=== PATIENT | male | born 1955 | race Caucasian/White ===

== ENCOUNTER 2019-01-05 19:50 | Observation (INO) | payer OTHER ==
[2019-01-05] MEDS ORDERED: Sodium Chloride 0.9% 1,000 ML IV ONE (20:11)
[2019-01-05] MEDS ORDERED: Ondansetron 4 MG/2 ML SDV IVPUSH ONE (20:11)
[2019-01-05] MEDS ORDERED: Morphine 2 MG/ML Syringe IVPUSH ONE (20:12)
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
[2019-01-05] MEDS ORDERED: HYDROmorphone 2 MG/ML Syringe IVPUSH ONE (22:05)
--- NOTE | 2019-01-05 22:55 | CT ---
INDICATION: Abdominal pain. Previous history of head neck cancer. COMPARISON: COMPARISON DATE TECHNIQUE: CT examination of the abdomen and pelvis was performed without contrast enhancement using 3 mm thick axial sections from the lung bases through the pubic symphysis. Oral contrast was not administered. Please note that all CT scans at this facility use dose modulation, iterative reconstruction, and/or weight-based dosing when appropriate to reduce radiation dose to as low as reasonably achievable. FINDINGS: In the abdomen, the unenhanced liver is mildly enlarged, measuring 19.2 centimeters in length The spleen is moderately enlarged measuring 15.1 centimeters in length. The pancreas and adrenals are normal in appearance. The unenhanced kidneys are normal in appearance. The gallbladder is normal in appearance. The abdominal aorta is normal in caliber with no sign of dilatation. There is no sign of retroperitoneal mass or adenopathy. The stomach, loops of small bowel, and colon in the abdomen are normal in appearance. In the pelvis, the appendix is nonvisualized, but there is no sign of an inflammatory process in the area of the appendix. There is mild proximal sigmoid diverticulosis without evidence of diverticulitis. The loops of small bowel and colon in the pelvis are otherwise normal in appearance. The prostate is mildly enlarged, measuring 5.1 centimeters in diameter. It is otherwise normal in appearance. The urinary bladder is normal in appearance. There is no sign of pelvic or inguinal mass or adenopathy. There is a moderate area of spiculated density measuring 1.3 x 0.9 centimeters in the posterior-medial right lung base. While this is most likely an area of scarring or atelectasis, malignancy cannot entirely be excluded. There is mild patchy infiltrate in the posterior-medial right lung base, probably atelectasis. The rest of the lung base is clear. The heart is normal in size with a trace pericardial effusion. There is mild scoliosis of the inferior lumbar spine convex towards the left. There is prominent disc degenerative disease at L5-S1 with absence of the disc space consistent with effusion. There is prominent L3-4 and L4-5 disc degenerative disease with moderate disc degenerative disease throughout the rest of the lumbar spine. IMPRESSION: CT of the abdomen shows moderate splenomegaly and mild hepatomegaly of uncertain etiology. CT of the pelvis shows mild enlargement of the prostate. 1 x 3 x 0.9 centimeter spiculated density in the posterior-medial right lung base, probably scarring or atelectasis. Cannot exclude malignancy. Follow-up CT of the chest without contrast can be performed if clinically appropriate. Please note that all CT scans at this facility use dose modulation, iterative reconstruction, and/or weight-based dosing when appropriate to reduce radiation dose to as low as reasonably achievable. Dictated by Tim Wolf MD @ Jan 05 2019 10:44PM Signed by Dr. Tim Wolf @ Jan 05 2019 10:53PM
[2019-01-06] MEDS: Sodium Chloride 0.9% 1,000 ML IV SCH ×3 (01:08→17:00)
[2019-01-06] MEDS: HYDROmorphone 2 MG Tab PO PRN ×7 (01:12→21:44)
[2019-01-06] MEDS: Temazepam 15 MG Cap PO PRN (01:12)
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
[2019-01-06] MEDS ORDERED: Albuterol 8 GM Inhaler INH PRN (08:25)
[2019-01-06] MEDS ORDERED: fentaNYL 75 MCG/HR Transdermal Patch TRDERM SCH (08:30)
[2019-01-06] MEDS: Nicotine 14 MG/24 Hr Patch TRDERM SCH (09:04)
[2019-01-06] MEDS: Heparin Sodium 5,000 Units/ML Vial SUBCUT SCH ×2 (09:06→17:15)
--- NOTE | 2019-01-06 11:47 | US ---
EXAMINATION: Right upper quadrant ultrasound HISTORY: Pancreatitis COMPARISON: Noncontrast CT dated 01/05/2019 TECHNIQUE: Grayscale and color Doppler imaging obtained of the right upper quadrant. FINDINGS: Within the region of the head of the pancreas is a hypoechoic fairly well-circumscribed nodular region measuring 2 x 0.8 cm. The liver is mildly increased in generalized echotexture without a focal hepatic mass. Gallbladder wall thickness is normal. No pericholecystic fluid or shadowing gallstones. Common bile duct measures 6 mm. The right kidney measures 9.9 cm [id number] without evidence of hydronephrosis. IMPRESSION: 1. Hypoechoic nodular area within the pancreas, given the history of pancreatitis kidneys could represent a small region of necrosis. A pancreatic neoplasm is not excluded at this time and follow-up imaging with an MRI may be beneficial. 2. Mild fatty infiltration of the liver.
[2019-01-06] MEDS: Morphine 2 MG/ML Syringe IVPUSH PRN ×2 (19:48→22:08)
[2019-01-07] MEDS: Morphine 2 MG/ML Syringe IVPUSH PRN ×6 (00:14→15:12)
[2019-01-07] MEDS: Heparin Sodium 5,000 Units/ML Vial SUBCUT SCH ×3 (00:14→18:27)
[2019-01-07] MEDS: Temazepam 15 MG Cap PO PRN (00:36)
[2019-01-07] MEDS: Sodium Chloride 0.9% 1,000 ML IV SCH ×2 (00:36→08:47)
[2019-01-07] MEDS: HYDROmorphone 2 MG Tab PO PRN ×5 (01:34→15:29)
[2019-01-07] MEDS: Nicotine 14 MG/24 Hr Patch TRDERM SCH (08:09)
[2019-01-07] MEDS ORDERED: Gadobenate Dimeglumine 529 MG/ML 20 ML SDV IVPUSH STA (10:28)
--- NOTE | 2019-01-07 12:44 | MR ---
EXAMINATION: MRI of the abdomen with and without contrast. HISTORY: Possible pancreatic mass COMPARISON: CT dated 01/05/2019 TECHNIQUE: Multiplanar and multisequence imaging obtained of the abdomen before and following the administration of 10 mL of MultiHance. An MRCP protocol was also used. FINDINGS: There is moderate motion artifact noted most prominent on the postcontrast sequences. The liver is normal in signal without a focal mass or signal dropout on out of phase imaging. Adrenal glands and spleen are grossly normal. Small amount of fluid within the right upper quadrant and within the pericholecystic region with an otherwise unremarkable gallbladder. The common bile duct appears normal without a filling defect. Just anterior to the head of the pancreas is a 2 x 1 cm lymph node, possibly the abnormality noted on the prior ultrasound. Otherwise the pancreas is not optimally characterized due to motion. No organized peripancreatic fluid collection. The kidneys enhance and function symmetrically without evidence of obstructive uropathy. Degenerative and endplate marrow signal changes noted within the lumbar spine. There is a small amount of free pelvic fluid also noted. IMPRESSION: 1. Small amount of ascites most prominent in the peripancreatic region. 2. The previously demonstrated mass likely represents a borderline 2 x 1 cm peripancreatic lymph node. 3. No definitive pancreatic mass or cystic collection.
--- NOTE | 2019-01-07 13:06 | PCM.PN ---
<Placido Arevalo - Last Filed: 01/07/19 13:02> - General Info Date of Service: 01/07/19 Subjective Update: No acute events overnight. abdominal pain improved. No nausea, vomiting. He is hungry. - Patient Data Vitals - Most Recent: Last Vital Signs Temp 37.8 C 01/07/19 11:42 Pulse 84 01/07/19 11:42 Resp 16 01/07/19 11:42 BP 123/72 01/07/19 11:42 Pulse Ox 95 01/07/19 11:42 Weight - Most Recent: 59.874 kg I&O - Last 24 Hours: Intake & Output 01/06/19 01/07/19 01/07/19 22:59 06:59 14:59 Intake Total 2389 0 Balance 2389 0 Lab Results Last 24 Hours: Laboratory Results - last 24 hr 01/07/19 01/07/19 Range/Units 07:20 07:20 WBC 3.98 L (4.0-11.0) K/uL RBC 3.36 L (4.50-5.90) M/uL Hgb 10.2 L (13.0-17.0) g/dL Hct 29.9 L (38.0-50.0) % MCV 89.0 (80.0-98.0) fL MCH 30.4 (27.0-32.0) pg MCHC 34.1 (31.0-37.0) g/dL RDW Std Deviation 50.5 (28.0-62.0) fl RDW Coeff of Dee 16 H (11.0-15.0) % Plt Count 173 (150-400) K/uL MPV 9.10 (7.40-12.00) fL Neut % (Auto) 81.6 H (48.0-80.0) % Lymph % (Auto) 8.5 L (16.0-40.0) % Leon % (Auto) 8.8 (0.0-15.0) % Eos % (Auto) 0.8 (0.0-7.0) % Baso % (Auto) 0.3 (0.0-1.5) % Neut # (Auto) 3.3 (1.4-5.7) K/uL Lymph # (Auto) 0.3 L (0.6-2.4) K/uL Leon # (Auto) 0.4 (0.0-0.8) K/uL Eos # (Auto) 0.0 (0.0-0.7) K/uL Baso # (Auto) 0.0 (0.0-0.1) K/uL Nucleated RBC % 0.0 /100WBC Nucleated RBCs # 0 K/uL Sodium 133 L (136-148) mmol/L Potassium 3.7 (3.5-5.1) mmol/L Chloride 101 (98-107) mmol/L Carbon Dioxide 21.2 (21.0-32.0) mmol/L BUN 17 (7.0-18.0) mg/dL Creatinine 1.5 H (0.8-1.3) mg/dL Est Cr Clr Drug Dosing 43.24 mL/min Estimated GFR (MDRD) 47.4 ml/min Glucose 71 L (74-106) mg/dL Calcium 8.9 (8.5-10.1) mg/dL Lipase 644 H (73-393) U/L Med Orders - Current: Current Medications Albuterol (Ventolin Hfa) 0 gm INH Q6H PRN PRN Reason: Shortness of Breath Fentanyl (Duragesic) 75 mcg TRDERM Q72H [facility] Last Admin: 01/06/19 09:05 Dose: 75 mcg Heparin Sodium (Porcine) (Heparin Sodium) 5,000 units SUBCUT Q8H [facility] Last Admin: 01/07/19 08:43 Dose: 5,000 units Hydromorphone HCl (Dilaudid) 4 mg PO Q3H PRN PRN Reason: Pain Last Admin: 01/07/19 11:59 Dose: 4 mg Sodium Chloride (Normal Saline) 1,000 mls @ 125 mls/hr IV ASDIRECTED [facility] Last Admin: 01/07/19 08:47 Dose: 125 mls/hr Morphine Sulfate (Morphine) 2 mg IVPUSH Q2H PRN PRN Reason: Pain Last Admin: 01/07/19 11:25 Dose: 2 mg Nicotine (Habitrol) 14 mg TRDERM DAILY [facility] Last Admin: 01/07/19 08:09 Dose: 14 mg Temazepam (Restoril) 15 mg PO BEDTIME PRN PRN Reason: Insomnia Last Admin: 01/07/19 00:36 Dose: 15 mg Discontinued Medications Gadobenate Dimeglumine (Multihance) 10 ml IVPUSH ONETIME STA Stop: 01/07/19 10:29 Last Admin: 01/07/19 10:31 Dose: 10 ml Hydromorphone HCl (Dilaudid) 1 mg IVPUSH ONETIME ONE Stop: 01/05/19 22:06 Last Admin: 01/05/19 22:22 Dose: 1 mg Sodium Chloride (Normal Saline) 1,000 mls @ 999 mls/hr IV BOLUS ONE Stop: 01/05/19 21:11 Last Admin: 01/05/19 22:21 Dose: 999 mls/hr Morphine Sulfate (Morphine) 2 mg IVPUSH ONETIME ONE Stop: 01/05/19 20:13 Last Admin: 01/05/19 20:43 Dose: 2 mg Ondansetron HCl (Zofran) 4 mg IVPUSH ONETIME ONE Stop: 01/05/19 20:12 Last Admin: 01/05/19 22:21 Dose: 4 mg - Exam General: Alert, Oriented, Cooperative, No Acute Distress Lungs: Clear to Auscultation, Normal Respiratory Effort Cardiovascular: Regular Rate, Regular Rhythm GI/Abdominal Exam: Other (hypoactive bowel sounds, mildly tender in epigastric region. No rebound.) Extremities: Normal Inspection, No Pedal Edema Skin: Warm, Dry - Problem List Review Problem List Initiated/Reviewed/Updated: Yes - My Orders Last 24 Hours: My Active Orders 01/07/19 Lunch Full Liquid Diet [DIET] - Plan Plan:: A: 1. Acute pancreatitis 2. Metastatic lung cancer 3. Suspicious pancreatic mass P: 1. Acute pancreatitis- will advance diet to full liquid. Advance as tolerated. 2. Suspicious pancreatic mass- Ordered MRI Dispo: likely tomorrow <Avni Nielson - Last Filed: 01/07/19 18:05> - General Info Admission Dx/Problem (Free Text): I have seen and examined to patient independently of medical recruiter, Placido Stephens MD. I have discussed the case for care of this patient with him. I have reviewed and approve of the plan of care as outlined by medical recruiter. Please see orders. - Patient Data Vitals - Most Recent: Last Vital Signs Temp 38.6 C H 01/07/19 15:07 Pulse 89 01/07/19 15:07 Resp 16 01/07/19 15:07 BP 142/91 H 01/07/19 15:07 Pulse Ox 93 L 01/07/19 15:07 I&O - Last 24 Hours: Intake & Output 01/07/19 01/07/19 01/07/19 06:59 14:59 22:59 Intake Total 0 1504 Output Total 300 Balance 0 1204 Lab Results Last 24 Hours: Laboratory Results - last 24 hr 01/07/19 01/07/19 Range/Units 07:20 07:20 WBC 3.98 L (4.0-11.0) K/uL RBC 3.36 L (4.50-5.90) M/uL Hgb 10.2 L (13.0-17.0) g/dL Hct 29.9 L (38.0-50.0) % MCV 89.0 (80.0-98.0) fL MCH 30.4 (27.0-32.0) pg MCHC 34.1 (31.0-37.0) g/dL RDW Std Deviation 50.5 (28.0-62.0) fl RDW Coeff of Dee 16 H (11.0-15.0) % Plt Count 173 (150-400) K/uL MPV 9.10 (7.40-12.00) fL Neut % (Auto) 81.6 H (48.0-80.0) % Lymph % (Auto) 8.5 L (16.0-40.0) % Leon % (Auto) 8.8 (0.0-15.0) % Eos % (Auto) 0.8 (0.0-7.0) % Baso % (Auto) 0.3 (0.0-1.5) % Neut # (Auto) 3.3 (1.4-5.7) K/uL Lymph # (Auto) 0.3 L (0.6-2.4) K/uL Leon # (Auto) 0.4 (0.0-0.8) K/uL Eos # (Auto) 0.0 (0.0-0.7) K/uL Baso # (Auto) 0.0 (0.0-0.1) K/uL Nucleated RBC % 0.0 /100WBC Nucleated RBCs # 0 K/uL Sodium 133 L (136-148) mmol/L Potassium 3.7 (3.5-5.1) mmol/L Chloride 101 (98-107) mmol/L Carbon Dioxide 21.2 (21.0-32.0) mmol/L BUN 17 (7.0-18.0) mg/dL Creatinine 1.5 H (0.8-1.3) mg/dL Est Cr Clr Drug Dosing 43.24 mL/min Estimated GFR (MDRD) 47.4 ml/min Glucose 71 L (74-106) mg/dL Calcium 8.9 (8.5-10.1) mg/dL Lipase 644 H (73-393) U/L Med Orders - Current: Current Medications Acetaminophen (Tylenol) 650 mg PO Q6H PRN PRN Reason: Pain/Fever Last Admin: 01/07/19 15:30 Dose: 650 mg Albuterol (Ventolin Hfa) 0 gm INH Q6H PRN PRN Reason: Shortness of Breath Fentanyl (Duragesic) 75 mcg TRDERM Q72H [facility] Last Admin: 01/06/19 09:05 Dose: 75 mcg Heparin Sodium (Porcine) (Heparin Sodium) 5,000 units SUBCUT Q8H [facility] Last Admin: 01/07/19 08:43 Dose: 5,000 units Hydromorphone HCl (Dilaudid) 4 mg PO Q3H PRN PRN Reason: Pain Last Admin: 01/07/19 15:29 Dose: 4 mg Sodium Chloride (Normal Saline) 1,000 mls @ 125 mls/hr IV ASDIRECTED [facility] Last Admin: 01/07/19 08:47 Dose: 125 mls/hr Morphine Sulfate (Morphine) 2 mg IVPUSH Q2H PRN PRN Reason: Pain Last Admin: 01/07/19 15:12 Dose: 2 mg Nicotine (Habitrol) 14 mg TRDERM DAILY [facility] Last Admin: 01/07/19 08:09 Dose: 14 mg Temazepam (Restoril) 15 mg PO BEDTIME PRN PRN Reason: Insomnia Last Admin: 01/07/19 00:36 Dose: 15 mg Discontinued Medications Gadobenate Dimeglumine (Multihance) 10 ml IVPUSH ONETIME STA Stop: 01/07/19 10:29 Last Admin: 01/07/19 10:31 Dose: 10 ml Heparin Sodium (Porcine) (Heparin Lock Flush 100 Units/Ml) 300 unit FLUSH ONETIME ONE Stop: 01/07/19 17:13 Last Admin: 01/07/19 17:32 Dose: Not Given Hydromorphone HCl (Dilaudid) 1 mg IVPUSH ONETIME ONE Stop: 01/05/19 22:06 Last Admin: 01/05/19 22:22 Dose: 1 mg Sodium Chloride (Normal Saline) 1,000 mls @ 999 mls/hr IV BOLUS ONE Stop: 01/05/19 21:11 Last Admin: 01/05/19 22:21 Dose: 999 mls/hr Morphine Sulfate (Morphine) 2 mg IVPUSH ONETIME ONE Stop: 01/05/19 20:13 Last Admin: 01/05/19 20:43 Dose: 2 mg Ondansetron HCl (Zofran) 4 mg IVPUSH ONETIME ONE Stop: 01/05/19 20:12 Last Admin: 01/05/19 22:21 Dose: 4 mg - Problem List & Annotations (1) Pancreatitis SNOMED Code(s): 61184334 Code(s): K85.90 - ACUTE PANCREATITIS WITHOUT NECROSIS OR INFECTION, UNSP Status: Acute Current Visit: Yes Qualifiers: Chronicity: acute Pancreatitis type: unspecified pancreatitis type Acute pancreatitis complication: unspecified Qualified Code(s): K85.90 - Acute pancreatitis without necrosis or infection, unspecified (2) CKD (chronic kidney disease) stage 3, GFR 30-59 ml/min SNOMED Code(s): 796676375 Code(s): N18.3 - CHRONIC KIDNEY DISEASE, STAGE 3 (MODERATE) Status: Acute Current Visit: Yes (3) Dehydration SNOMED Code(s): 49548149 Code(s): E86.0 - DEHYDRATION Status: Acute Priority: High Current Visit : Yes (4) History of head and neck cancer SNOMED Code(s): 929063328 Code(s): Z85.89 - PERSONAL HISTORY OF MALIGNANT NEOPLASM OF ORGANS AND SYSTEMS Status: Chronic Priority: High Current Visit: Yes (5) History of metastatic neoplastic disease SNOMED Code(s): 740591827 Code(s): Z85.9 - PERSONAL HISTORY OF MALIGNANT NEOPLASM, UNSPECIFIED Status : Chronic Priority: High Current Visit: Yes (6) Anemia SNOMED Code(s): 009622634 Code(s): D64.9 - ANEMIA, UNSPECIFIED Status: Acute Current Visit: No Qualifiers: Anemia type: unspecified type Qualified Code(s): D64.9 - Anemia, unspecified
[2019-01-07 15:08] VITALS: BP 142/91
[2019-01-07] MEDS ORDERED: Acetaminophen 325 MG Tab PO PRN (15:09)
--- NOTE | 2019-01-07 16:46 | PCM.DCSUM1 ---
<Placido Arevalo - Last Filed: 01/07/19 17:12> Discharge Summary - Hospital Course Free Text/Narrative:: 63 y/o male with history of head and neck cancer s/p chemotherapy and now newly diagnosed lung cancer who presented to the ER complaining of abdominal pain. He was admitted for acute pancreatitis. His Lipase was [address] abdomen showed pancreatic inflammation. An MRI abdomen was performed for concern for possible pancreatic mass, however, a pancreatic mass was excluded since it was an enlarged lymph node. He did relatively well during this hospitalization. His pain improved with bowel rest. His diet was advanced and he was able to tolerate a full liquid diet without nausea or vomiting and minimal pain. He was discharged home with instructions to eat soft foods at first and slowly advance his diet as tolerated. - Discharge Data Discharge Date: 01/07/19 Discharge Disposition: Home, Self-Care 01 Condition: Good - Patient Instructions Diet: Regular Diet as Tolerated Activity: As Tolerated Notify Provider of: Fever, Increased Pain, Swelling and Redness, Nausea and/or Vomiting - Discharge Plan *PRESCRIPTION DRUG MONITORING PROGRAM REVIEWED*: Not Applicable *COPY OF PRESCRIPTION DRUG MONITORING REPORT IN PATIENT CARMEN: Not Applicable Home Medications: Home Meds Omeprazole Magnesium [Prilosec Otc] 20 mg PO DAILY 01/17/16 [History] Albuterol [Ventolin HFA] 2 inh INH Q4H PRN 02/19/18 [History] HYDROmorphone [Dilaudid] 2 mg PO Q4H PRN 07/22/18 [History] Magnesium Gluconate 500 mg PO BID 07/22/18 [History] Ondansetron [Zofran] 8 mg PO Q8H 07/22/18 [History] Prochlorperazine [Compazine] 10 mg PO Q8H 07/22/18 [History] fentaNYL [Fentanyl] 1 each TD ASDIRECTED 07/22/18 [History] Patient Handouts: Acute Pancreatitis, [id number] Referrals: Sommer Blandon PA [Physician Sheet Tailer] - 01/15/19 10:45 am - Discharge Summary/Plan Comment DC Time >30 min.: No - Patient Data Vitals - Most Recent: Last Vital Signs Temp 38.6 C H 01/07/19 15:07 Pulse 89 01/07/19 15:07 Resp 16 01/07/19 15:07 BP 142/91 H 01/07/19 15:07 Pulse Ox 93 L 01/07/19 15:07 Weight - Most Recent: 59.874 kg I&O - Last 24 hours: Intake & Output 01/07/19 01/07/19 01/07/19 06:59 14:59 22:59 Intake Total 0 1504 Output Total 300 Balance 0 1204 Lab Results - Last 24 hrs: Laboratory Results - last 24 hr 01/07/19 01/07/19 Range/Units 07:20 07:20 WBC 3.98 L (4.0-11.0) K/uL RBC 3.36 L (4.50-5.90) M/uL Hgb 10.2 L (13.0-17.0) g/dL Hct 29.9 L (38.0-50.0) % MCV 89.0 (80.0-98.0) fL MCH 30.4 (27.0-32.0) pg MCHC 34.1 (31.0-37.0) g/dL RDW Std Deviation 50.5 (28.0-62.0) fl RDW Coeff of Dee 16 H (11.0-15.0) % Plt Count 173 (150-400) K/uL MPV 9.10 (7.40-12.00) fL Neut % (Auto) 81.6 H (48.0-80.0) % Lymph % (Auto) 8.5 L (16.0-40.0) % [place] % (Auto) 8.8 (0.0-15.0) % Eos % (Auto) 0.8 (0.0-7.0) % Baso % (Auto) 0.3 (0.0-1.5) % Neut # (Auto) 3.3 (1.4-5.7) K/uL Lymph # (Auto) 0.3 L (0.6-2.4) K/uL Aurora # (Auto) 0.4 (0.0-0.8) K/uL Eos # (Auto) 0.0 (0.0-0.7) K/uL Baso # (Auto) 0.0 (0.0-0.1) K/uL Nucleated RBC % 0.0 /100WBC Nucleated RBCs # 0 K/uL Sodium 133 L (136-148) mmol/L Potassium 3.7 (3.5-5.1) mmol/L Chloride 101 (98-107) mmol/L Carbon Dioxide 21.2 (21.0-32.0) mmol/L BUN 17 (7.0-18.0) mg/dL Creatinine 1.5 H (0.8-1.3) mg/dL Est Cr Clr Drug Dosing 43.24 mL/min Estimated GFR (MDRD) 47.4 ml/min Glucose 71 L (74-106) mg/dL Calcium 8.9 (8.5-10.1) mg/dL Lipase 644 H (73-393) U/L Med Orders - Current: Current Medications Acetaminophen (Tylenol) 650 mg PO Q6H PRN PRN Reason: Pain/Fever Last Admin: 01/07/19 15:30 Dose: 650 mg Albuterol (Ventolin Hfa) 0 gm INH Q6H PRN PRN Reason: Shortness of Breath Fentanyl (Duragesic) 75 mcg TRDERM Q72H [facility] Last Admin: 01/06/19 09:05 Dose: 75 mcg Heparin Sodium (Porcine) (Heparin Sodium) 5,000 units SUBCUT Q8H [facility] Last Admin: 01/07/19 08:43 Dose: 5,000 units Hydromorphone HCl (Dilaudid) 4 mg PO Q3H PRN PRN Reason: Pain Last Admin: 01/07/19 15:29 Dose: 4 mg Sodium Chloride (Normal Saline) 1,000 mls @ 125 mls/hr IV ASDIRECTED [facility] Last Admin: 01/07/19 08:47 Dose: 125 mls/hr Morphine Sulfate (Morphine) 2 mg IVPUSH Q2H PRN PRN Reason: Pain Last Admin: 01/07/19 15:12 Dose: 2 mg Nicotine (Habitrol) 14 mg TRDERM DAILY [facility] Last Admin: 01/07/19 08:09 Dose: 14 mg Temazepam (Restoril) 15 mg PO BEDTIME PRN PRN Reason: Insomnia Last Admin: 01/07/19 00:36 Dose: 15 mg Discontinued Medications Gadobenate Dimeglumine (Multihance) 10 ml IVPUSH ONETIME STA Stop: 01/07/19 10:29 Last Admin: 01/07/19 10:31 Dose: 10 ml Hydromorphone HCl (Dilaudid) 1 mg IVPUSH ONETIME ONE Stop: 01/05/19 22:06 Last Admin: 01/05/19 22:22 Dose: 1 mg Sodium Chloride (Normal Saline) 1,000 mls @ 999 mls/hr IV BOLUS ONE Stop: 01/05/19 21:11 Last Admin: 01/05/19 22:21 Dose: 999 mls/hr Morphine Sulfate (Morphine) 2 mg IVPUSH ONETIME ONE Stop: 01/05/19 20:13 Last Admin: 01/05/19 20:43 Dose: 2 mg Ondansetron HCl (Zofran) 4 mg IVPUSH ONETIME ONE Stop: 01/05/19 20:12 Last Admin: 01/05/19 22:21 Dose: 4 mg <Avni Nielson - Last Filed: 01/07/19 18:05> Discharge Summary - Hospital Course HPI Initial Comments: I have seen and examined to patient independently of medical assistant ob gyn, Placido Stephens MD. I have discussed the case for care of this patient with him. I have reviewed and approve of the plan of care as outlined by medical assistant ob gyn. Please see orders. - Discharge Diagnosis/Problem(s) (1) Pancreatitis SNOMED Code(s): 10111532 ICD Code: K85.90 - ACUTE PANCREATITIS WITHOUT NECROSIS OR INFECTION, UNSP Status: Acute Current Visit: Yes Qualifiers: Chronicity: acute Pancreatitis type: unspecified pancreatitis type Acute pancreatitis complication: unspecified Qualified Code(s): K85.90 - Acute pancreatitis without necrosis or infection, unspecified (2) CKD (chronic kidney disease) stage 3, GFR 30-59 ml/min SNOMED Code(s): 842981239 ICD Code: N18.3 - CHRONIC KIDNEY DISEASE, STAGE 3 (MODERATE) Status: Acute Current Visit: Yes (3) Dehydration SNOMED Code(s): 57804387 ICD Code: E86.0 - DEHYDRATION Status: Acute Priority: High Current Visit: Yes (4) History of head and neck cancer SNOMED Code(s): 276412643 ICD Code: Z85.89 - PERSONAL HISTORY OF MALIGNANT NEOPLASM OF ORGANS AND SYSTEMS Status: Chronic Priority: High Current Visit: Yes (5) History of metastatic neoplastic disease SNOMED Code(s): 962958617 ICD Code: Z85.9 - PERSONAL HISTORY OF MALIGNANT NEOPLASM, UNSPECIFIED Status: Chronic Priority: High Current Visit: Yes (6) Anemia SNOMED Code(s): 594092535 ICD Code: D64.9 - ANEMIA, UNSPECIFIED Status: Acute Current Visit: No Qualifiers: Anemia type: unspecified type Qualified Code(s): D64.9 - Anemia, unspecified - Patient Data Vitals - Most Recent: Last Vital Signs Temp 38.6 C H 01/07/19 15:07 Pulse 89 01/07/19 15:07 Resp 16 01/07/19 15:07 BP 142/91 H 01/07/19 15:07 Pulse Ox 93 L 01/07/19 15:07 I&O - Last 24 hours: Intake & Output 01/07/19 01/07/19 01/07/19 06:59 14:59 22:59 Intake Total 0 1504 Output Total 300 Balance 0 1204 Lab Results - Last 24 hrs: Laboratory Results - last 24 hr 01/07/19 01/07/19 Range/Units 07:20 07:20 WBC 3.98 L (4.0-11.0) K/uL RBC 3.36 L (4.50-5.90) M/uL Hgb 10.2 L (13.0-17.0) g/dL Hct 29.9 L (38.0-50.0) % MCV 89.0 (80.0-98.0) fL MCH 30.4 (27.0-32.0) pg MCHC 34.1 (31.0-37.0) g/dL RDW Std Deviation 50.5 (28.0-62.0) fl RDW Coeff of Dee 16 H (11.0-15.0) % Plt Count 173 (150-400) K/uL MPV 9.10 (7.40-12.00) fL Neut % (Auto) 81.6 H (48.0-80.0) % Lymph % (Auto) 8.5 L (16.0-40.0) % Aurora % (Auto) 8.8 (0.0-15.0) % Eos % (Auto) 0.8 (0.0-7.0) % Baso % (Auto) 0.3 (0.0-1.5) % Neut # (Auto) 3.3 (1.4-5.7) K/uL Lymph # (Auto) 0.3 L (0.6-2.4) K/uL [place] # (Auto) 0.4 (0.0-0.8) K/uL Eos # (Auto) 0.0 (0.0-0.7) K/uL Baso # (Auto) 0.0 (0.0-0.1) K/uL Nucleated RBC % 0.0 /100WBC Nucleated RBCs # 0 K/uL Sodium 133 L (136-148) mmol/L Potassium 3.7 (3.5-5.1) mmol/L Chloride 101 (98-107) mmol/L Carbon Dioxide 21.2 (21.0-32.0) mmol/L BUN 17 (7.0-18.0) mg/dL Creatinine 1.5 H (0.8-1.3) mg/dL Est Cr Clr Drug Dosing 43.24 mL/min Estimated GFR (MDRD) 47.4 ml/min Glucose 71 L (74-106) mg/dL Calcium 8.9 (8.5-10.1) mg/dL Lipase 644 H (73-393) U/L Med Orders - Current: Current Medications Acetaminophen (Tylenol) 650 mg PO Q6H PRN PRN Reason: Pain/Fever Last Admin: 01/07/19 15:30 Dose: 650 mg Albuterol (Ventolin Hfa) 0 gm INH Q6H PRN PRN Reason: Shortness of Breath Fentanyl (Duragesic) 75 mcg TRDERM Q72H [facility] Last Admin: 01/06/19 09:05 Dose: 75 mcg Heparin Sodium (Porcine) (Heparin Sodium) 5,000 units SUBCUT Q8H [facility] Last Admin: 01/07/19 08:43 Dose: 5,000 units Hydromorphone HCl (Dilaudid) 4 mg PO Q3H PRN PRN Reason: Pain Last Admin: 01/07/19 15:29 Dose: 4 mg Sodium Chloride (Normal Saline) 1,000 mls @ 125 mls/hr IV ASDIRECTED [facility] Last Admin: 01/07/19 08:47 Dose: 125 mls/hr Morphine Sulfate (Morphine) 2 mg IVPUSH Q2H PRN PRN Reason: Pain Last Admin: 01/07/19 15:12 Dose: 2 mg Nicotine (Habitrol) 14 mg TRDERM DAILY [facility] Last Admin: 01/07/19 08:09 Dose: 14 mg Temazepam (Restoril) 15 mg PO BEDTIME PRN PRN Reason: Insomnia Last Admin: 01/07/19 00:36 Dose: 15 mg Discontinued Medications Gadobenate Dimeglumine (Multihance) 10 ml IVPUSH ONETIME STA Stop: 01/07/19 10:29 Last Admin: 01/07/19 10:31 Dose: 10 ml Heparin Sodium (Porcine) (Heparin Lock Flush 100 Units/Ml) 300 unit FLUSH ONETIME ONE Stop: 01/07/19 17:13 Last Admin: 01/07/19 17:32 Dose: Not Given Hydromorphone HCl (Dilaudid) 1 mg IVPUSH ONETIME ONE Stop: 01/05/19 22:06 Last Admin: 01/05/19 22:22 Dose: 1 mg Sodium Chloride (Normal Saline) 1,000 mls @ 999 mls/hr IV BOLUS ONE Stop: 01/05/19 21:11 Last Admin: 01/05/19 22:21 Dose: 999 mls/hr Morphine Sulfate (Morphine) 2 mg IVPUSH ONETIME ONE Stop: 01/05/19 20:13 Last Admin: 01/05/19 20:43 Dose: 2 mg Ondansetron HCl (Zofran) 4 mg IVPUSH ONETIME ONE Stop: 01/05/19 20:12 Last Admin: 01/05/19 22:21 Dose: 4 mg
[2019-01-07] MEDS ORDERED: Heparin Sodium 100 Units/ML 3 ML Syringe FLUSH ONE (17:12)
== END 2019-01-07 17:45 | disposition home or self-care (01) ==
LOC: MW.ED 19:50 → MW.MS 23:15
PROVIDERS: ADMIT Internal Medicine; ATTEND Internal Medicine
DX: K85.90 Acute pancreatitis without necrosis or infection, unspecified (principal); C76.0 Malignant neoplasm of head, face and neck; C78.00 Secondary malignant neoplasm of unspecified lung; N18.3 Chronic kidney disease, stage 3 (moderate); D63.1 Anemia in chronic kidney disease; E86.0 Dehydration; J44.9 Chronic obstructive pulmonary disease, unspecified; Z87.891 Personal history of nicotine dependence; Z92.21 Personal history of antineoplastic chemotherapy; Z92.3 Personal history of irradiation; Z79.899 Other long term (current) drug therapy
CPT/HCPCS: 36415; 74176; 74182; 76705; 80048; 80053; 81003; 82150; 83690; 85025; 86308; 93005; 96361; 96372; 96374; 96375; 96376; 99285; A9270; A9577; G0378; J1170; J1644; J2270; J2405; J7040

== ENCOUNTER 2019-07-29 15:17 | Emergency (ER) | payer MEDICAID ==
[2019-07-29 15:46] VITALS: BP 119/70; PULSE 74
[2019-07-29] MEDS ORDERED: Lidocaine 2% Viscous Solution 15 ML Cup PO ONE (16:08)
[2019-07-29] MEDS ORDERED: Benzocaine 20% Topical Spray UD MUCMEM ONE (16:08)
--- NOTE | 2019-07-29 16:13 | EDM.PDOC ---
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 you dizzy or drowsy. Avoid alcoholic beverages. Acetaminophen may cause liver damage. Daily use of alcohol, especially when combined with acetaminophen, may increase your risk for liver damage. Caution is advised if you have diabetes, alcohol dependence, liver disease, phenylketonuria (PKU), or any other condition that requires you to limit/avoid these substances in your diet. Ask your doctor or pharmacist about using this product safely. Older adults may be more sensitive to the effects of this drug, especially dizziness, drowsiness, urinary problems. During , this medication should be used only when clearly needed. Using it for long periods or in high doses near the expected delivery date is not recommended because of the potential for harm to the unborn baby. Discuss the risks and benefits with your doctor. Babies born to mothers who have used this medication for an extended time may have withdrawal symptoms such as irritability, abnormal/persistent crying, vomiting, or diarrhea. If you notice any of these symptoms in your , tell the doctor promptly. This medication passes into breast milk and may rarely have undesirable effects on a nursing infant. Tell the doctor immediately if your baby develops unusual sleepiness, difficulty feeding, or trouble breathing. Consult your doctor before breast-feeding. Sepsis Event Note - Evaluation Sepsis Screening Result: No Definite Risk - Focused Exam Vital Signs: Vital Signs Temp Pulse Resp BP Pulse Ox 07/29/19 15:45 36.3 C 74 18 119/70 94 L Date Exam was Performed: 07/29/19 Time Exam was Performed: 16:09
== END 2019-07-29 16:35 | disposition home or self-care (01) ==
LOC: MW.ED 15:17
DX: G89.29 Other chronic pain (principal); K08.89 Other specified disorders of teeth and supporting structures; K00.7 Teething syndrome; J44.9 Chronic obstructive pulmonary disease, unspecified; K21.9 Gastro-esophageal reflux disease without esophagitis; M19.90 Unspecified osteoarthritis, unspecified site; F41.9 Anxiety disorder, unspecified; F32.9 Major depressive disorder, single episode, unspecified; F17.210 Nicotine dependence, cigarettes, uncomplicated; Z79.899 Other long term (current) drug therapy
CPT/HCPCS: 99282; A9270

== ENCOUNTER 2019-07-30 14:08 | Emergency (ER) | payer MEDICAID ==
[2019-07-30] MEDS ORDERED: fentaNYL 50 MCG/ML SDV IVPUSH ONE ×2 (14:23→15:08)
[2019-07-30] MEDS ORDERED: fentaNYL 100 MCG/2 ML SDV ONE (14:27)
[2019-07-30] MEDS ORDERED: fentaNYL 100 MCG/2 ML SDV IVPUSH STA (14:31)
[2019-07-30] MEDS ORDERED: fentaNYL 50 MCG/ML SDV IVPUSH PRN (14:36)
[2019-07-30] MEDS ORDERED: diphenhydrAMINE 50 MG/ML SDV IVPUSH ONE (14:40)
[2019-07-30] MEDS ORDERED: LORazepam 2 MG/ML SDV IVPUSH ONE ×2 (14:41→15:40)
[2019-07-30 14:54] LABS: BLOOD UREA NITROGEN,BUN 22 mg/dL (7.0-18.0); CARBON DIOXIDE,CO2 22.7 mmol/L (21.0-32.0); CHLORIDE,CL 99 mmol/L (98-107); GLUCOSE RANDOM 85 mg/dL (74-106); LIPASE 45 U/L (73-393); POTASSIUM,K 4.1 mmol/L (3.5-5.1); SODIUM,NA 134 mmol/L (136-148)
[2019-07-30] MEDS ORDERED: Haloperidol Lactate 5 MG/ML SDV IM ONE (15:08)
[2019-07-30] MEDS ORDERED: Iopamidol 612 MG/ML 100 ML Bottle IVPUSH STA (15:42)
--- NOTE | 2019-07-30 16:26 | CT ---
Sudden onset of sharp pain. COMPARISON: CT chest 07/14/2019 Findings: Normal caliber thoracic aorta. Heart size is normal. No pulmonary emboli visualized. No mediastinal hilar adenopathy. Apical pleural-parenchymal fibrotic change. Respiratory motion degrades quality of study. Severe emphysema. Mild fibrosis. 3 mm left lower lobe pulmonary nodule series 202 image 76 stable. Left upper lobe ill-defined opacity appears decreased in size from the prior study on series 202 image 50. No thoracic aneurysm or dissection. Liver pancreas adrenal glands are unremarkable. Gallbladder is unremarkable. Atherosclerotic calcification of the abdominal aorta nonaneurysmal without dissection. Symmetric enhancement both kidneys appears unremarkable. Bowel is unremarkable. Splenomegaly measuring 15 cm. Prostate gland is enlarged. Urinary bladder is unremarkable Impression: 1. No thoracic or abdominal aortic aneurysm or dissection. No pulmonary emboli 2. No acute findings in the chest abdomen or pelvis 3. Enlarged prostate gland 4. Severe emphysema pulmonary fibrosis. 5. Splenomegaly. Please note that all CT scans at this facility use dose modulation, iterative reconstruction, and/or weight-based dosing when appropriate to reduce radiation dose to as low as reasonably achievable. Dictated by Eli Angeles MD @ Jul 30 2019 4:07PM Signed by Dr. Eli Angeles @ Jul 30 2019 4:25PM
[2019-07-30] MEDS ORDERED: Sodium Chloride 0.9% 1,000 ML IV ONE (16:31)
[2019-07-30 18:47] LABS: CARBON DIOXIDE,CO2 22.9 mmol/L (21.0-32.0)
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
[2019-07-30 20:57] VITALS: BP 118/74; PULSE 100
--- NOTE | 2019-07-31 14:01 | CT ---
EXAM DATE: 07/30/19 PATIENT'S AGE: 64 Patient: CARMEN SANFORD Facility: [facility] Site . Site : [id number] Study: CT-Chest Angio -07/30/2019 3:56:48 PM Ordering Physician: Marva Srivastava Final Report: Sudden onset of sharp pain. COMPARISON: CT chest 07/14/2019 Findings: Normal caliber thoracic aorta. Heart size is normal. No pulmonary emboli visualized. No mediastinal hilar adenopathy. Apical pleural-parenchymal fibrotic change. Respiratory motion degrades quality of study. Severe emphysema. Mild fibrosis. 3 mm left lower lobe pulmonary nodule series 202 image 76 stable. Left upper lobe ill-defined opacity appears decreased in size from the prior study on series 202 image 50. No thoracic aneurysm or dissection. Liver pancreas adrenal glands are unremarkable. Gallbladder is unremarkable. Atherosclerotic calcification of the abdominal aorta nonaneurysmal without dissection. Symmetric enhancement both kidneys appears unremarkable. Bowel is unremarkable. Splenomegaly measuring 15 cm. Prostate gland is enlarged. Urinary bladder is unremarkable Impression: 1. No thoracic or abdominal aortic aneurysm or dissection. No pulmonary emboli 2. No acute findings in the chest abdomen or pelvis 3. Enlarged prostate gland 4. Severe emphysema pulmonary fibrosis. 5. Splenomegaly. Please note that all CT scans at this facility use dose modulation, iterative reconstruction, and/or weight-based dosing when appropriate to reduce radiation dose to as low as reasonably achievable. Dictated by Eli Angeles MD @ Jul 30 2019 4:07PM Signed by: Eli Angeles MD @07/30/2019 4:25:57 PM (Electronic Signature) Report Signed by Proxy. [facility]
== END 2019-07-30 19:35 | disposition home or self-care (01) ==
LOC: MW.ED 14:08
DX: R07.9 Chest pain, unspecified (principal); F15.10 Other stimulant abuse, uncomplicated; J44.9 Chronic obstructive pulmonary disease, unspecified; F17.210 Nicotine dependence, cigarettes, uncomplicated
CPT/HCPCS: 36415; 71275; 74175; 80048; 80053; 80305; 81003; 83690; 83880; 84484; 85025; 93005; 94660; 96361; 96374; 96375; 96376; 99285; J1630; J1642; J2060; J3010; J7030; Q9967

== ENCOUNTER 2019-08-05 16:33 | Emergency (ER) | payer MEDICAID ==
[2019-08-05] MEDS ORDERED: fentaNYL 50 MCG/ML SDV IVPUSH ONE (17:30)
[2019-08-05] MEDS ORDERED: fentaNYL 100 MCG/2 ML SDV IVPUSH ONE (17:35)
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
[2019-08-05 18:13] LABS: CARBON DIOXIDE,CO2 24.8 mmol/L (21.0-32.0); POTASSIUM,K 4.1 mmol/L (3.5-5.1)
[2019-08-05] MEDS ORDERED: HYDROmorphone 2 MG/ML Syringe IVPUSH ONE (18:17)
--- NOTE | 2019-08-05 19:24 | CT ---
CT abdomen and pelvis Technique: Multiple axial sections were obtained from above the dome of the diaphragm inferiorly through the pubic symphysis. Intravenous and oral contrast not utilized. Patient's arms along his side which causes some artifact. Findings: Visualized lung bases show nothing acute. Emphysematous change is noted. Liver contains no focal abnormality. Spleen appears without discrete abnormality. 2 minimal calcifications within the lower right kidney are seen compatible with nonobstructing calculi. No ureteral dilatation is seen on either side. No ureteral stone is appreciated. Adrenal glands show no nodule. Pancreas shows no discrete abnormality. Gallbladder contains no calcified gallstones. Aorta and iliac vessels shows atherosclerotic calcification without aneurysm. No retroperitoneal adenopathy or mesenteric abnormalities are seen. No pelvic mass or adenopathy is seen. No free fluid or inflammatory change is appreciated. Appendix not definitely visualized. Bone window settings were reviewed which shows scoliosis within the spine. Diffuse degenerative change is noted throughout the lumbar spine. No acute osseous finding is appreciated. Impression: 1. 2 minimal calcifications within the lower right kidney compatible with nonobstructing calculi. No ureteral dilatation or ureteral stone is seen. 2. Other findings believed to be incidental. 3. Nothing acute is appreciated on noncontrast CT study of the abdomen and pelvis. Diagnostic code #2 This report was dictated in [place] Standard Time
--- NOTE | 2019-08-05 19:24 | CT ---
CT lumbar spine Technique: Multiple axial sections were obtained from above T12-L1 disc inferiorly through the L5-S1 disc. Reconstructed coronal and sagittal images were obtained. Comparison: Previous MRI lumbar spine study of 05/13/19. Findings: Severe degenerative change is seen throughout the lumbar spine. Endplate irregularity is noted within L1-2. Scoliosis is noted. Osteopenia is present. No acute osseous finding is seen. No central canal stenosis is noted. Neural foramina are grossly maintained. No abnormal subluxation is seen. Impression: 1. Endplate irregularity within the L1-2 endplates. This has increased in prominence from previous MRI study. Given the previous findings on MRI, current study is suspicious for disc space infection with developing osteomyelitis of the vertebral bodies. 2. Diffuse degenerative change as noted above. 3. Osteopenia is seen. No other acute finding is appreciated. Diagnostic code #5 This report was dictated in [place] Standard Time
--- NOTE | 2019-08-05 19:28 | CT ---
CT thoracic spine Technique: Multiple axial sections through the thoracic spine were obtained. Reconstructed coronal and sagittal images were reviewed. Findings: Scattered disc space narrowing is seen. Endplate erosions again noted at L1-[address] lumbar spine study. Bony structures are osteopenic. No focal osteolytic or osteoblastic change is appreciated. No bony central canal stenosis is seen. No fracture is identified. No neural foraminal stenosis is identified on the parasagittal images. Impression: 1. Mild disc space narrowing. 2. Osteopenia. 3. Nothing acute is seen. Diagnostic code #2 This report was dictated in [place] Standard Time
[2019-08-05 20:24] VITALS: BP 150/90; PULSE 88
[2019-08-05] MEDS ORDERED: Albuterol/Ipratropium 3.0-0.5 MG/3 ML Neb Soln ONE (20:28)
== END 2019-08-05 20:05 | disposition home or self-care (01) ==
LOC: MW.ED 16:33
DX: M46.20 Osteomyelitis of vertebra, site unspecified (principal); F17.210 Nicotine dependence, cigarettes, uncomplicated; Z79.899 Other long term (current) drug therapy
CPT/HCPCS: 72128; 72131; 74176; 80053; 81003; 85025; 85652; 96374; 96375; 99284; J1170; J1642; J3010; J7620-GY

== ENCOUNTER 2019-08-13 15:21 | Inpatient (IN) | payer MEDICAID ==
[2019-08-13] MEDS ORDERED: Sodium Chloride 0.9% 1,000 ML IV ONE ×2 (15:36→18:52)
[2019-08-13] MEDS ORDERED: Acetaminophen 325 MG Tab PO ONE (15:36)
[2019-08-13] MEDS ORDERED: Cefepime 1 GM in Premix Bag 1 BAG IV ONE (16:18)
[2019-08-13 16:49] LABS: BLOOD UREA NITROGEN,BUN 21 mg/dL (7.0-18.0); CHLORIDE,CL 98 mmol/L (98-107); GLUCOSE RANDOM 82 mg/dL (74-106); SODIUM,NA 134 mmol/L (136-148)
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
[2019-08-13] MEDS ORDERED: Ondansetron 4 MG/2 ML SDV IVPUSH PRN (18:01)
[2019-08-13] MEDS ORDERED: Acetaminophen 325 MG Tab PO PRN (18:01)
[2019-08-13] MEDS ORDERED: Albuterol 8 GM Inhaler INH PRN (18:07)
[2019-08-13 18:38] LABS: CARBON DIOXIDE,CO2 26.5 mmol/L (21.0-32.0); POTASSIUM,K 4.6 mmol/L (3.5-5.1)
[2019-08-13] MEDS ORDERED: Nicotine 14 MG/24 Hr Patch TRDERM ONE (18:55)
--- NOTE | 2019-08-13 18:55 | CR ---
Chest: Portable view of the chest was obtained. Comparison: Prior chest CT study of 07/14/19 and chest x-ray of 07/18/18. Right-sided infusion catheter is seen. Interstitial changes are noted which is slightly more prominent than on previous exams. Heart size at the upper limits of normal. Upper mediastinum is normal. Bony structures are grossly intact. Impression: 1. Mild increased interstitial change from previous studies. Please correlate if patient has any infectious symptoms for findings to represent bronchitis superimposed upon chronic fibrosis. Findings could also represent drug or chemotherapy reaction if any such history is present. Noncardiogenic pulmonary edema etiologies are also within the differential. Worsening fibrosis is also a possibility. 2. No pneumonia is seen. Diagnostic code #3 This report was dictated in [place] Standard Time
[2019-08-13] MEDS: Sodium Chloride 0.9% 1,000 ML IV SCH ×2 (19:08→21:13)
[2019-08-13] MEDS: HYDROmorphone 1 MG/ML Syringe IVPUSH PRN (19:09)
[2019-08-13] MEDS: Nicotine 7 MG/24 Hr Patch TRDERM SCH (20:15)
[2019-08-13] MEDS ORDERED: Enoxaparin 40 MG/0.4 ML Syringe SUBCUT SCH (21:00)
[2019-08-14] MEDS: HYDROmorphone 1 MG/ML Syringe IVPUSH PRN ×3 (03:24→06:06)
[2019-08-14] MEDS: Cefepime 2 GM in Premix Bag 1 BAG IV SCH ×2 (04:08→15:12)
[2019-08-14] MEDS: Sodium Chloride 0.9% 1,000 ML IV SCH ×2 (07:39→18:27)
[2019-08-14 07:43] LABS: CARBON DIOXIDE,CO2 26.1 mmol/L (21.0-32.0); POTASSIUM,K 4.1 mmol/L (3.5-5.1)
[2019-08-14] MEDS ORDERED: HYDROmorphone 1 MG/ML Syringe IVPUSH PRN (07:46)
--- NOTE | 2019-08-14 08:10 | PCM.PN ---
- General Info Date of Service: 08/14/19 Subjective Update: The patient was admitted for osteomyelitis of L1-L2. Patient reports significant back pain, reports IV Dilaudid dose not high enough and he is due to fentanyl patch changed today. Blood cultures came back growing gram negative rods. Was requiring oxygen yesterday but off oxygen now. Afebrile overnight. - Review of Systems General: Reports: No Symptoms HEENT: Reports: No Symptoms Pulmonary: Reports: No Symptoms Cardiovascular: Reports: No Symptoms Gastrointestinal: Reports: No Symptoms Genitourinary: Reports: No Symptoms Musculoskeletal: Reports: Back Pain Skin: Reports: No Symptoms Neurological: Reports: No Symptoms Psychiatric: Reports: No Symptoms - Patient Data Vitals - Most Recent: Last Vital Signs Temp 97.5 F 08/14/19 07:46 Pulse 71 08/14/19 07:46 Resp 18 08/14/19 07:46 BP 137/87 08/14/19 07:46 Pulse Ox 96 08/14/19 07:46 Weight - Most Recent: 60.1 kg I&O - Last 24 Hours: Intake & Output 08/13/19 08/14/19 08/14/19 22:59 06:59 14:59 Intake Total 2850 Output Total 1250 Balance 1600 Lab Results Last 24 Hours: Laboratory Results - last 24 hr 08/13/19 08/13/19 08/13/19 Range/Units 15:44 15:44 15:44 WBC 4.63 (4.0-11.0) K/uL RBC 3.59 L (4.50-5.90) M/uL Hgb 10.6 L (13.0-17.0) g/dL Hct 31.3 L (38.0-50.0) % MCV 87.2 (80.0-98.0) fL MCH 29.5 (27.0-32.0) pg MCHC 33.9 (31.0-37.0) g/dL RDW Std Deviation 49.5 (28.0-62.0) fl RDW Coeff of Dee 16 H (11.0-15.0) % Plt Count 253 (150-400) K/uL MPV 8.80 (7.40-12.00) fL Neut % (Auto) 92.5 H (48.0-80.0) % Lymph % (Auto) 4.8 L (16.0-40.0) % Larue % (Auto) 1.9 (0.0-15.0) % Eos % (Auto) 0.6 (0.0-7.0) % Baso % (Auto) 0.2 (0.0-1.5) % Neut # (Auto) 4.3 (1.4-5.7) K/uL Lymph # (Auto) 0.2 L (0.6-2.4) K/uL Larue # (Auto) 0.1 (0.0-0.8) K/uL Eos # (Auto) 0.0 (0.0-0.7) K/uL Baso # (Auto) 0.0 (0.0-0.1) K/uL Nucleated RBC % 0.0 /100WBC Nucleated RBCs # 0 K/uL ESR 67 H (0-19) mm/hr Lactate 0.8 (0.20-2.00) mmol/L Sodium (136-148) mmol/L Potassium (3.5-5.1) mmol/L Chloride (98-107) mmol/L Carbon Dioxide (21.0-32.0) mmol/L BUN (7.0-18.0) mg/dL Creatinine (0.8-1.3) mg/dL Est Cr Clr Drug Dosing mL/min Estimated GFR (MDRD) ml/min Glucose (74-106) mg/dL Calcium (8.5-10.1) mg/dL Total Bilirubin (0.2-1.0) mg/dL AST (15-37) IU/L ALT (14-63) IU/L Alkaline Phosphatase (46-116) U/L Total Protein (6.4-8.2) g/dL Albumin (3.4-5.0) g/dL Globulin (2.6-4.0) g/dL Albumin/Globulin Ratio (0.9-1.6) Urine Color Urine Appearance Urine pH (5.0-8.0) Ur Specific [place] (1.001-1.035) Urine Protein (NEGATIVE) mg/dL Urine Glucose (UA) (NEGATIVE) mg/dL Urine Ketones (NEGATIVE) mg/dL Urine Occult Blood (NEGATIVE) Urine Nitrite (NEGATIVE) Urine Bilirubin (NEGATIVE) Urine Urobilinogen (<2.0) EU/dL Ur Leukocyte Esterase (NEGATIVE) Ethyl Alcohol mg/dL 08/13/19 08/13/19 08/13/19 Range/Units 15:44 15:44 16:03 WBC (4.0-11.0) K/uL RBC (4.50-5.90) M/uL Hgb (13.0-17.0) g/dL Hct (38.0-50.0) % MCV (80.0-98.0) fL MCH (27.0-32.0) pg MCHC (31.0-37.0) g/dL RDW Std Deviation (28.0-62.0) fl RDW Coeff of Dee (11.0-15.0) % Plt Count (150-400) K/uL MPV (7.40-12.00) fL Neut % (Auto) (48.0-80.0) % Lymph % (Auto) (16.0-40.0) % Larue % (Auto) (0.0-15.0) % Eos % (Auto) (0.0-7.0) % Baso % (Auto) (0.0-1.5) % Neut # (Auto) (1.4-5.7) K/uL Lymph # (Auto) (0.6-2.4) K/uL Larue # (Auto) (0.0-0.8) K/uL Eos # (Auto) (0.0-0.7) K/uL Baso # (Auto) (0.0-0.1) K/uL Nucleated RBC % /100WBC Nucleated RBCs # K/uL ESR (0-19) mm/hr Lactate (0.20-2.00) mmol/L Sodium 134 L 136 (136-148) mmol/L Potassium 4.0 4.6 (3.5-5.1) mmol/L Chloride 98 99 (98-107) mmol/L Carbon Dioxide 25.0 26.5 (21.0-32.0) mmol/L BUN 21 H 22 H (7.0-18.0) mg/dL Creatinine 1.9 H 2.0 H (0.8-1.3) mg/dL Est Cr Clr Drug Dosing 33.19 32.14 mL/min Estimated GFR (MDRD) 36.0 33.9 ml/min Glucose 82 99 (74-106) mg/dL Calcium 9.2 9.9 (8.5-10.1) mg/dL Total Bilirubin 0.7 (0.2-1.0) mg/dL AST 28 (15-37) IU/L ALT 26 (14-63) IU/L Alkaline Phosphatase 129 H (46-116) U/L Total Protein 8.0 (6.4-8.2) g/dL Albumin 3.1 L (3.4-5.0) g/dL Globulin 4.9 H (2.6-4.0) g/dL Albumin/Globulin Ratio 0.6 L (0.9-1.6) Urine Color YELLOW Urine Appearance CLEAR Urine pH 7.5 (5.0-8.0) Ur Specific [place] 1.015 (1.001-1.035) Urine Protein NEGATIVE (NEGATIVE) mg/dL Urine Glucose (UA) NEGATIVE (NEGATIVE) mg/dL Urine Ketones NEGATIVE (NEGATIVE) mg/dL Urine Occult Blood NEGATIVE (NEGATIVE) Urine Nitrite NEGATIVE (NEGATIVE) Urine Bilirubin NEGATIVE (NEGATIVE) Urine Urobilinogen 4.0 H (<2.0) EU/dL Ur Leukocyte Esterase NEGATIVE (NEGATIVE) Ethyl Alcohol < 3.0 mg/dL 08/14/19 Range/Units 05:55 WBC 4.81 (4.0-11.0) K/uL RBC 3.03 L (4.50-5.90) M/uL Hgb 9.0 L (13.0-17.0) g/dL Hct 27.0 L (38.0-50.0) % MCV 89.1 (80.0-98.0) fL MCH 29.7 (27.0-32.0) pg MCHC 33.3 (31.0-37.0) g/dL RDW Std Deviation 51.2 (28.0-62.0) fl RDW Coeff of Dee 16 H (11.0-15.0) % Plt Count 225 (150-400) K/uL MPV 8.90 (7.40-12.00) fL Neut % (Auto) 79.2 (48.0-80.0) % Lymph % (Auto) 11.0 L (16.0-40.0) % Larue % (Auto) 7.5 (0.0-15.0) % Eos % (Auto) 2.1 (0.0-7.0) % Baso % (Auto) 0.2 (0.0-1.5) % Neut # (Auto) 3.8 (1.4-5.7) K/uL Lymph # (Auto) 0.5 L (0.6-2.4) K/uL [place]ue # (Auto) 0.4 (0.0-0.8) K/uL Eos # (Auto) 0.1 (0.0-0.7) K/uL Baso # (Auto) 0.0 (0.0-0.1) K/uL Nucleated RBC % 0.0 /100WBC Nucleated RBCs # 0 K/uL ESR (0-19) mm/hr Lactate (0.20-2.00) mmol/L Sodium (136-148) mmol/L Potassium (3.5-5.1) mmol/L Chloride (98-107) mmol/L Carbon Dioxide (21.0-32.0) mmol/L BUN (7.0-18.0) mg/dL Creatinine (0.8-1.3) mg/dL Est Cr Clr Drug Dosing mL/min Estimated GFR (MDRD) ml/min Glucose (74-106) mg/dL Calcium (8.5-10.1) mg/dL Total Bilirubin (0.2-1.0) mg/dL AST (15-37) IU/L ALT (14-63) IU/L Alkaline Phosphatase (46-116) U/L Total Protein (6.4-8.2) g/dL Albumin (3.4-5.0) g/dL Globulin (2.6-4.0) g/dL Albumin/Globulin Ratio (0.9-1.6) Urine Color Urine Appearance Urine pH (5.0-8.0) Ur Specific [place] (1.001-1.035) Urine Protein (NEGATIVE) mg/dL Urine Glucose (UA) (NEGATIVE) mg/dL Urine Ketones (NEGATIVE) mg/dL Urine Occult Blood (NEGATIVE) Urine Nitrite (NEGATIVE) Urine Bilirubin (NEGATIVE) Urine Urobilinogen (<2.0) EU/dL Ur Leukocyte Esterase (NEGATIVE) Ethyl Alcohol mg/dL Oren Results Last 24 Hours: Microbiology 08/13/19 15:44 Aerobic Blood Culture - Preliminary Blood - Venous - Lab Draw 08/13/19 16:08 Anaerobic Blood Culture - Final Blood - Venous Med Orders - Current: Current Medications Acetaminophen (Tylenol) 650 mg PO Q4H PRN PRN Reason: Pain/Fever Albuterol (Ventolin Hfa) 0 gm INH Q4H PRN PRN Reason: Shortness of Breath Fentanyl (Duragesic) 100 mcg TRDERM Q72H [facility] Heparin Sodium (Porcine) (Heparin Sodium) 5,000 units SUBCUT Q8H [facility] Hydromorphone HCl (Dilaudid) 2 mg IVPUSH Q3H PRN PRN Reason: Pain (severe 7-10) Cefepime HCl 2 gm/ Premix 50 mls @ 100 mls/hr IV Q12H [facility] Last Admin: 08/14/19 04:08 Dose: 100 mls/hr Sodium Chloride (Normal Saline) 1,000 mls @ 100 mls/hr IV ASDIRECTED [facility] Last Admin: 08/14/19 07:39 Dose: 100 mls/hr Vancomycin HCl 1 gm/ Sodium (Chloride) 250 mls @ 166 mls/hr IV Q24H [facility] Nicotine (Habitrol) 7 mg TRDERM DAILY [facility] Last Admin: 08/13/19 20:15 Dose: 7 mg Omeprazole (Omeprazole) 20 mg PO DAILY [facility] Ondansetron HCl (Zofran) 4 mg IVPUSH Q4H PRN PRN Reason: Nausea/Vomiting Oxycodone HCl (Oxycodone) 5 mg PO Q4H PRN PRN Reason: Pain (moderate 4-6) Discontinued Medications Acetaminophen (Tylenol) 650 mg PO NOW ONE Stop: 08/13/19 15:37 Last Admin: 08/13/19 15:55 Dose: 650 mg Enoxaparin Sodium (Lovenox) 40 mg SUBCUT BEDTIME [facility] Last Admin: 08/13/19 20:13 Dose: 40 mg Hydromorphone HCl (Dilaudid) 1 mg IVPUSH Q3H PRN PRN Reason: Pain (severe 7-10) Last Admin: 08/14/19 06:06 Dose: 1 mg Hydromorphone HCl (Dilaudid) 2 mg IVPUSH Q3H PRN PRN Reason: Pain (severe 7-10) Sodium Chloride (Normal Saline) 1,000 mls @ 999 mls/hr IV .BOLUS ONE Stop: 08/13/19 16:36 Last Admin: 08/13/19 15:55 Dose: 999 mls/hr Cefepime HCl 1 gm/ Premix 50 mls @ 100 mls/hr IV ONETIME ONE Stop: 08/13/19 16:47 Last Admin: 08/13/19 16:31 Dose: 100 mls/hr Vancomycin HCl 1 gm/ Sodium (Chloride) 250 mls @ 166 mls/hr IV ONETIME ONE Stop: 08/13/19 17:47 Last Infusion: 08/13/19 18:10 Dose: 75 mls/hr Sodium Chloride (Normal Saline) 1,000 mls @ 999 mls/hr IV STAT ONE Stop: 08/13/19 19:52 Last Admin: 08/13/19 19:54 Dose: Not Given Nicotine (Habitrol) 14 mg TRDERM DAILY ONE Stop: 08/13/19 18:56 Last Admin: 08/13/19 19:19 Dose: Not Given Non-Formulary Medication (Fentanyl [Fentanyl]) 1 each TD ASDIRECTED LIZET Vancomycin HCl (Pharmacy To Dose - Vancomycin) 1 dose .XX ASDIRECTED LIZET - Exam General: Alert, Oriented, Cooperative Lungs: Clear to Auscultation, Normal Respiratory Effort Cardiovascular: Regular Rate, Regular Rhythm GI/Abdominal Exam: Normal Bowel Sounds, Soft, Non-Tender, No Distention Back Exam: Vertebral Tenderness Extremities: No Pedal Edema Skin: Warm, Dry Neurological: No New Focal Deficit, Strength Equal Bilateral Psy/Mental Status: Alert, Normal Affect, Normal Mood Sepsis Event Note - Evaluation Sepsis Screening Result: No Definite Risk - Focused Exam Vital Signs: Vital Signs Temp Pulse Resp BP Pulse Ox 08/14/19 07:46 97.5 F 71 18 137/87 96 08/14/19 04:00 97.8 F 68 19 101/54 L 96 08/14/19 00:00 98.2 F 62 18 104/52 L 95 Date Exam was Performed: 08/14/19 Time Exam was Performed: 11:01 - Problem List Review Problem List Initiated/Reviewed/Updated: Yes - My Orders Last 24 Hours: My Active Orders 08/13/19 18:01 Intake and Output [RC] Q12H Vital Signs [RC] Q4H Acetaminophen [Tylenol] 650 mg PO Q4H PRN Ondansetron [Zofran] 4 mg IVPUSH Q4H PRN oxyCODONE 5 mg PO Q4H PRN Resuscitation Status Routine 08/13/19 18:07 Albuterol [Ventolin HFA] 0 gm INH Q4H PRN 08/13/19 18:15 Sodium Chloride 0.9% [Normal Saline] 1,000 ml IV ASDIRECTED 08/13/19 Dinner Regular Diet [DIET] 08/14/19 04:00 Cefepime [Maxipime in D5W 2 GM/50 ML] 2 gm Premix Bag 1 bag IV Q12H 08/14/19 07:15 BASIC METABOLIC PANEL,BMP [CHEM] Stat 08/14/19 07:54 HYDROmorphone [Dilaudid] 2 mg IVPUSH Q3H PRN 08/14/19 09:00 Omeprazole 20 mg PO DAILY 08/14/19 22:00 Heparin Sodium 5,000 units SUBCUT Q8H - Plan Plan:: 7. Osteomyelitis L1-L2 with gram negative bacteremia- Continue Vanco and Cefepime. Repeat blood cultures this evening once it has been at least 24 hours . For pain will replace fentanyl patch today. Will have Tylenol, oxycodone, and IV Dilaudid for pain control. Will increase Dilaudid dose. Zofran for nausea. 8. CKD- continue on IVF. 9. Hypoxia-resolved- CXR did not show any pneumonia, patient no longer requiring oxygen.
[2019-08-14] MEDS: HYDROmorphone 2 MG/ML Syringe IVPUSH PRN ×5 (08:56→21:25)
[2019-08-14] MEDS: Omeprazole 20 MG Cap.CR PO SCH (08:57)
[2019-08-14] MEDS: Nicotine 7 MG/24 Hr Patch TRDERM SCH (09:00)
[2019-08-14] MEDS: fentaNYL 100 MCG/HR Transdermal Patch TRDERM SCH (09:36)
[2019-08-14] MEDS ORDERED: Non-Formulary Medication 1 Each (Fentanyl [Fentanyl] 1 EACH) TD SCH (18:15)
[2019-08-14] MEDS: oxyCODONE 5 MG Tab PO PRN (20:28)
[2019-08-14] MEDS: Heparin Sodium 5,000 Units/ML Vial SUBCUT SCH (21:24)
[2019-08-15] MEDS: HYDROmorphone 2 MG/ML Syringe IVPUSH PRN ×7 (00:53→22:37)
[2019-08-15] MEDS: Sodium Chloride 0.9% 1,000 ML IV SCH ×2 (02:42→13:58)
[2019-08-15] MEDS: oxyCODONE 5 MG Tab PO PRN ×4 (02:42→18:08)
[2019-08-15] MEDS: Cefepime 2 GM in Premix Bag 1 BAG IV SCH ×2 (03:59→15:38)
[2019-08-15 06:00] LABS: CARBON DIOXIDE,CO2 25.5 mmol/L (21.0-32.0); POTASSIUM,K 4.7 mmol/L (3.5-5.1)
[2019-08-15] MEDS: Heparin Sodium 5,000 Units/ML Vial SUBCUT SCH ×3 (06:32→22:36)
[2019-08-15] MEDS ORDERED: fentaNYL 100 MCG/HR Transdermal Patch TRDERM SCH (08:00)
[2019-08-15] MEDS: Omeprazole 20 MG Cap.CR PO SCH (08:36)
[2019-08-15] MEDS ORDERED: Albuterol/Ipratropium 3.0-0.5 MG/3 ML Neb Soln NEB ONE (08:48)
--- NOTE | 2019-08-15 08:48 | PCM.PN ---
- General Info Date of Service: 08/15/19 Subjective Update: Admitted for osteomyelitis of spine. Patient reports pain better controlled with alternating oxycodone and Dilaudid, was up walking the halls today. His repeat blood cultures did come back positive for gram negative rods again. Intermittently using oxygen, nothing on CXR. Denies chest pain or fever/chills. - Review of Systems General: Reports: No Symptoms HEENT: Reports: No Symptoms Pulmonary: Reports: Wheezing Cardiovascular: Reports: No Symptoms Gastrointestinal: Reports: No Symptoms Genitourinary: Reports: No Symptoms Musculoskeletal: Reports: Back Pain Skin: Reports: No Symptoms Neurological: Reports: No Symptoms - Patient Data Vitals - Most Recent: Last Vital Signs Temp 98 F 08/15/19 03:00 Pulse 68 08/15/19 03:00 Resp 20 08/15/19 03:00 BP 138/63 08/15/19 03:00 Pulse Ox 93 L 08/15/19 03:00 Weight - Most Recent: 60.1 kg I&O - Last 24 Hours: Intake & Output 08/14/19 08/15/19 08/15/19 22:59 06:59 14:59 Intake Total 2282 1801 Output Total 510 1450 Balance 1772 351 Lab Results Last 24 Hours: Laboratory Results - last 24 hr 08/15/19 08/15/19 Range/Units 05:25 05:25 WBC 3.77 L (4.0-11.0) K/uL RBC 3.24 L (4.50-5.90) M/uL Hgb 9.5 L (13.0-17.0) g/dL Hct 28.8 L (38.0-50.0) % MCV 88.9 (80.0-98.0) fL MCH 29.3 (27.0-32.0) pg MCHC 33.0 (31.0-37.0) g/dL RDW Std Deviation 51.3 (28.0-62.0) fl RDW Coeff of Dee 16 H (11.0-15.0) % Plt Count 243 (150-400) K/uL MPV 8.80 (7.40-12.00) fL Neut % (Auto) 69.5 (48.0-80.0) % Lymph % (Auto) 15.9 L (16.0-40.0) % [place] % (Auto) 11.4 (0.0-15.0) % Eos % (Auto) 2.7 (0.0-7.0) % Baso % (Auto) 0.5 (0.0-1.5) % Neut # (Auto) 2.6 (1.4-5.7) K/uL Lymph # (Auto) 0.6 (0.6-2.4) K/uL [place] # (Auto) 0.4 (0.0-0.8) K/uL Eos # (Auto) 0.1 (0.0-0.7) K/uL Baso # (Auto) 0.0 (0.0-0.1) K/uL Nucleated RBC % 0.0 /100WBC Nucleated RBCs # 0 K/uL Sodium 139 (136-148) mmol/L Potassium 4.7 (3.5-5.1) mmol/L Chloride 104 (98-107) mmol/L Carbon Dioxide 25.5 (21.0-32.0) mmol/L BUN 17 (7.0-18.0) mg/dL Creatinine 1.6 H (0.8-1.3) mg/dL Est Cr Clr Drug Dosing 40.17 mL/min Estimated GFR (MDRD) 43.9 ml/min Glucose 97 (74-106) mg/dL Calcium 8.6 (8.5-10.1) mg/dL Oren Results Last 24 Hours: Microbiology 08/14/19 11:15 Aerobic Blood Culture - Preliminary Blood - Venous 08/13/19 16:08 Aerobic Blood Culture - Preliminary Blood - Venous Anaerobic Blood Culture - Final 08/13/19 15:44 Aerobic Blood Culture - Preliminary Blood - Venous - Lab Draw Anaerobic Blood Culture - Preliminary Med Orders - Current: Current Medications Acetaminophen (Tylenol) 650 mg PO Q4H PRN PRN Reason: Pain/Fever Albuterol (Ventolin Hfa) 0 gm INH Q4H PRN PRN Reason: Shortness of Breath Fentanyl (Duragesic) 100 mcg TRDERM Q72H [facility] Last Admin: 08/14/19 09:36 Dose: 100 mcg Heparin Sodium (Porcine) (Heparin Sodium) 5,000 units SUBCUT Q8H [facility] Last Admin: 08/15/19 06:32 Dose: 5,000 units Hydromorphone HCl (Dilaudid) 2 mg IVPUSH Q3H PRN PRN Reason: Pain (severe 7-10) Last Admin: 08/15/19 08:33 Dose: 2 mg Cefepime HCl 2 gm/ Premix 50 mls @ 100 mls/hr IV Q12H [facility] Last Admin: 08/15/19 03:59 Dose: 100 mls/hr Sodium Chloride (Normal Saline) 1,000 mls @ 100 mls/hr IV ASDIRECTED [facility] Last Admin: 08/15/19 02:42 Dose: 100 mls/hr Vancomycin HCl 1 gm/ Sodium (Chloride) 250 mls @ 166 mls/hr IV Q24H [facility] Last Admin: 08/14/19 16:34 Dose: 166 mls/hr Nicotine (Habitrol) 7 mg TRDERM DAILY [facility] Last Admin: 08/14/19 09:00 Dose: 7 mg Omeprazole (Omeprazole) 20 mg PO DAILY [facility] Last Admin: 08/15/19 08:36 Dose: 20 mg Ondansetron HCl (Zofran) 4 mg IVPUSH Q4H PRN PRN Reason: Nausea/Vomiting Oxycodone HCl (Oxycodone) 5 mg PO Q4H PRN PRN Reason: Pain (moderate 4-6) Last Admin: 08/15/19 06:31 Dose: 5 mg Discontinued Medications Acetaminophen (Tylenol) 650 mg PO NOW ONE Stop: 08/13/19 15:37 Last Admin: 08/13/19 15:55 Dose: 650 mg Enoxaparin Sodium (Lovenox) 40 mg SUBCUT BEDTIME [facility] Last Admin: 08/13/19 20:13 Dose: 40 mg Fentanyl (Duragesic) 100 mcg TRDERM Q72H [facility] Heparin Sodium (Porcine) (Heparin Lock Flush 100 Units/Ml) 500 units FLUSH ONETIME ONE Stop: 08/15/19 05:34 Last Admin: 08/15/19 05:44 Dose: 500 units Hydromorphone HCl (Dilaudid) 1 mg IVPUSH Q3H PRN PRN Reason: Pain (severe 7-10) Last Admin: 08/14/19 06:06 Dose: 1 mg Hydromorphone HCl (Dilaudid) 2 mg IVPUSH Q3H PRN PRN Reason: Pain (severe 7-10) Sodium Chloride (Normal Saline) 1,000 mls @ 999 mls/hr IV .BOLUS ONE Stop: 08/13/19 16:36 Last Admin: 08/13/19 15:55 Dose: 999 mls/hr Cefepime HCl 1 gm/ Premix 50 mls @ 100 mls/hr IV ONETIME ONE Stop: 08/13/19 16:47 Last Admin: 08/13/19 16:31 Dose: 100 mls/hr Vancomycin HCl 1 gm/ Sodium (Chloride) 250 mls @ 166 mls/hr IV ONETIME ONE Stop: 08/13/19 17:47 Last Infusion: 08/13/19 18:10 Dose: 75 mls/hr Sodium Chloride (Normal Saline) 1,000 mls @ 999 mls/hr IV STAT ONE Stop: 08/13/19 19:52 Last Admin: 08/13/19 19:54 Dose: Not Given Nicotine (Habitrol) 14 mg TRDERM DAILY ONE Stop: 08/13/19 18:56 Last Admin: 08/13/19 19:19 Dose: Not Given Non-Formulary Medication (Fentanyl [Fentanyl]) 1 each TD ASDIRECTED LIZET Vancomycin HCl (Pharmacy To Dose - Vancomycin) 1 dose .XX ASDIRECTED LIZET - Exam General: Alert, Oriented, Cooperative Lungs: Normal Respiratory Effort, Wheezing Cardiovascular: Regular Rate, Regular Rhythm GI/Abdominal Exam: Normal Bowel Sounds, Soft, Non-Tender, No Distention Extremities: No Pedal Edema Skin: Warm, Dry, Intact Neurological: No New Focal Deficit Psy/Mental Status: Alert, Normal Affect, Normal Mood Sepsis Event Note - Evaluation Sepsis Screening Result: No Definite Risk - Focused Exam Vital Signs: Vital Signs Temp Pulse Resp BP Pulse Ox 08/15/19 03:00 98 F 68 20 138/63 93 L 08/14/19 23:30 98.5 F 74 18 120/61 92 L Date Exam was Performed: 08/15/19 Time Exam was Performed: 10:03 - Problem List Review Problem List Initiated/Reviewed/Updated: Yes - My Orders Last 24 Hours: My Active Orders 08/14/19 07:54 HYDROmorphone [Dilaudid] 2 mg IVPUSH Q3H PRN 08/14/19 09:00 Omeprazole 20 mg PO DAILY 08/14/19 09:19 fentaNYL [Duragesic] 100 mcg TRDERM Q72H 08/14/19 11:15 CULTURE BLOOD [BC] Stat 08/14/19 11:25 CULTURE BLOOD [BC] Stat 08/14/19 17:00 Blood Culture x2 Reflex Set [OM.PC] ONETIME 08/14/19 22:00 Heparin Sodium 5,000 units SUBCUT Q8H - Plan Plan:: 1. Osteomyelitis L1-L2 with gram negative bacteremia- Continue Vanco and Cefepime. Repeat blood cultures positive for gram negative rods as well. Will repeat again tomorrow. Fentanyl patch replaced yesterday. Better pain control when alternating oxycodone and Dilaudid. Patient had PET scan performed in [place] 1 week ago, PET shows uptake around L1-2. 2. CKD-improving continue on IVF. 3. Intermittent oxygen use- Will have duonebs prn for SOB/wheezing. 4. Submental mass- Nothing seen on PET around the neck, will get US of the area.
[2019-08-15] MEDS ORDERED: Albuterol/Ipratropium 3.0-0.5 MG/3 ML Neb Soln NEB PRN (08:49)
--- NOTE | 2019-08-15 10:57 | US ---
Neck ultrasound: Multiple real-time images were obtained of the neck. Hypoechoic area is seen within the neck. This shows irregular margins measuring up to 2.5 cm. Difficult to exclude abnormal lymph node or other soft tissue mass. Impression: 1. Finding as noted above. Biopsy recommended to further evaluate. Diagnostic code #9 This report was dictated in [place] Standard Time
[2019-08-15] MEDS: Nicotine 7 MG/24 Hr Patch TRDERM SCH (11:00)
[2019-08-16] MEDS: Sodium Chloride 0.9% 1,000 ML IV SCH ×2 (01:55→13:03)
[2019-08-16] MEDS: HYDROmorphone 2 MG/ML Syringe IVPUSH PRN ×7 (01:57→21:11)
[2019-08-16] MEDS: Cefepime 2 GM in Premix Bag 1 BAG IV SCH ×2 (05:01→16:14)
[2019-08-16] MEDS: Heparin Sodium 5,000 Units/ML Vial SUBCUT SCH ×3 (05:03→21:12)
[2019-08-16] MEDS: Omeprazole 20 MG Cap.CR PO SCH (06:38)
[2019-08-16 07:08] LABS: CARBON DIOXIDE,CO2 25.3 mmol/L (21.0-32.0); POTASSIUM,K 4.3 mmol/L (3.5-5.1)
[2019-08-16] MEDS: Nicotine 7 MG/24 Hr Patch TRDERM SCH (08:34)
--- NOTE | 2019-08-16 14:19 | PCM.PN ---
- General Info Date of Service: 08/16/19 - Review of Systems Systems Review Comment:: feeling better - Patient Data Vitals - Most Recent: Last Vital Signs Temp 36.1 C 08/16/19 12:14 Pulse 100 08/16/19 12:14 Resp 18 08/16/19 12:14 BP 126/76 08/16/19 12:14 Pulse Ox 91 L 08/16/19 12:14 Weight - Most Recent: 60.1 kg I&O - Last 24 Hours: Intake & Output 08/15/19 08/16/19 08/16/19 22:59 06:59 14:59 Intake Total 2320 Output Total 2125 Balance 195 Lab Results Last 24 Hours: Laboratory Results - last 24 hr 08/16/19 08/16/19 Range/Units 06:30 06:30 WBC 3.09 L (4.0-11.0) K/uL RBC 3.26 L (4.50-5.90) M/uL Hgb 9.6 L (13.0-17.0) g/dL Hct 29.2 L (38.0-50.0) % MCV 89.6 (80.0-98.0) fL MCH 29.4 (27.0-32.0) pg MCHC 32.9 (31.0-37.0) g/dL RDW Std Deviation 51.8 (28.0-62.0) fl RDW Coeff of Dee 16 H (11.0-15.0) % Plt Count 239 (150-400) K/uL MPV 8.90 (7.40-12.00) fL Neut % (Auto) 64.1 (48.0-80.0) % Lymph % (Auto) 20.7 (16.0-40.0) % [place] % (Auto) 11.0 (0.0-15.0) % Eos % (Auto) 3.9 (0.0-7.0) % Baso % (Auto) 0.3 (0.0-1.5) % Neut # (Auto) 2.0 (1.4-5.7) K/uL Lymph # (Auto) 0.6 (0.6-2.4) K/uL [place] # (Auto) 0.3 (0.0-0.8) K/uL Eos # (Auto) 0.1 (0.0-0.7) K/uL Baso # (Auto) 0.0 (0.0-0.1) K/uL Nucleated RBC % 0.0 /100WBC Nucleated RBCs # 0 K/uL Sodium 139 (136-148) mmol/L Potassium 4.3 (3.5-5.1) mmol/L Chloride 105 (98-107) mmol/L Carbon Dioxide 25.3 (21.0-32.0) mmol/L BUN 15 (7.0-18.0) mg/dL Creatinine 1.6 H (0.8-1.3) mg/dL Est Cr Clr Drug Dosing 40.17 mL/min Estimated GFR (MDRD) 43.9 ml/min Glucose 90 (74-106) mg/dL Calcium 8.9 (8.5-10.1) mg/dL Oren Results Last 24 Hours: Microbiology 08/14/19 11:25 Aerobic Blood Culture - Preliminary Blood - Venous - Lab Draw NO GROWTH AFTER 2 DAYS Anaerobic Blood Culture - Preliminary NO GROWTH AFTER 2 DAYS 08/14/19 11:15 Aerobic Blood Culture - Preliminary Blood - Venous Anaerobic Blood Culture - Preliminary 08/13/19 16:08 Aerobic Blood Culture - Final Blood - Venous Anaerobic Blood Culture - Final 08/13/19 15:44 Aerobic Blood Culture - Final Blood - Venous - Lab Draw Klebsiella Pneumoniae Anaerobic Blood Culture - Final Med Orders - Current: Current Medications Acetaminophen (Tylenol) 650 mg PO Q4H PRN PRN Reason: Pain/Fever Albuterol (Ventolin Hfa) 0 gm INH Q4H PRN PRN Reason: Shortness of Breath Albuterol/Ipratropium (Duoneb 3.0-0.5 Mg/3 Ml) 3 ml NEB Q6HRRT PRN PRN Reason: Wheezing Fentanyl (Duragesic) 100 mcg TRDERM Q72H [facility] Last Admin: 08/14/19 09:36 Dose: 100 mcg Heparin Sodium (Porcine) (Heparin Sodium) 5,000 units SUBCUT Q8H [facility] Last Admin: 08/16/19 05:03 Dose: 5,000 units Hydromorphone HCl (Dilaudid) 2 mg IVPUSH Q3H PRN PRN Reason: Pain (severe 7-10) Last Admin: 08/16/19 11:29 Dose: 2 mg Cefepime HCl 2 gm/ Premix 50 mls @ 100 mls/hr IV Q12H [facility] Last Admin: 08/16/19 05:01 Dose: 100 mls/hr Sodium Chloride (Normal Saline) 1,000 mls @ 100 mls/hr IV ASDIRECTED [facility] Last Admin: 08/16/19 13:03 Dose: 100 mls/hr Vancomycin HCl 1 gm/ Sodium (Chloride) 250 mls @ 166 mls/hr IV Q24H [facility] Last Admin: 08/15/19 16:29 Dose: 166 mls/hr Nicotine (Habitrol) 7 mg TRDERM DAILY [facility] Last Admin: 08/16/19 08:34 Dose: 7 mg Omeprazole (Omeprazole) 20 mg PO ACBREAKFAST [facility] Last Admin: 08/16/19 06:38 Dose: 20 mg Ondansetron HCl (Zofran) 4 mg IVPUSH Q4H PRN PRN Reason: Nausea/Vomiting Oxycodone HCl (Oxycodone) 5 mg PO Q4H PRN PRN Reason: Pain (moderate 4-6) Last Admin: 08/15/19 18:08 Dose: 5 mg Discontinued Medications Acetaminophen (Tylenol) 650 mg PO NOW ONE Stop: 08/13/19 15:37 Last Admin: 08/13/19 15:55 Dose: 650 mg Albuterol/Ipratropium (Duoneb 3.0-0.5 Mg/3 Ml) 3 ml NEB ONETIME ONE Stop: 08/15/19 08:49 Last Admin: 08/15/19 09:14 Dose: 3 ml Enoxaparin Sodium (Lovenox) 40 mg SUBCUT BEDTIME [facility] Last Admin: 08/13/19 20:13 Dose: 40 mg Fentanyl (Duragesic) 100 mcg TRDERM Q72H [facility] Heparin Sodium (Porcine) (Heparin Lock Flush 100 Units/Ml) 500 units FLUSH ONETIME ONE Stop: 08/15/19 05:34 Last Admin: 08/15/19 05:44 Dose: 500 units Hydromorphone HCl (Dilaudid) 1 mg IVPUSH Q3H PRN PRN Reason: Pain (severe 7-10) Last Admin: 08/14/19 06:06 Dose: 1 mg Hydromorphone HCl (Dilaudid) 2 mg IVPUSH Q3H PRN PRN Reason: Pain (severe 7-10) Sodium Chloride (Normal Saline) 1,000 mls @ 999 mls/hr IV .BOLUS ONE Stop: 08/13/19 16:36 Last Admin: 08/13/19 15:55 Dose: 999 mls/hr Cefepime HCl 1 gm/ Premix 50 mls @ 100 mls/hr IV ONETIME ONE Stop: 08/13/19 16:47 Last Admin: 08/13/19 16:31 Dose: 100 mls/hr Vancomycin HCl 1 gm/ Sodium (Chloride) 250 mls @ 166 mls/hr IV ONETIME ONE Stop: 08/13/19 17:47 Last Infusion: 08/13/19 18:10 Dose: 75 mls/hr Sodium Chloride (Normal Saline) 1,000 mls @ 999 mls/hr IV STAT ONE Stop: 08/13/19 19:52 Last Admin: 08/13/19 19:54 Dose: Not Given Nicotine (Habitrol) 14 mg TRDERM DAILY ONE Stop: 08/13/19 18:56 Last Admin: 08/13/19 19:19 Dose: Not Given Non-Formulary Medication (Fentanyl [Fentanyl]) 1 each TD ASDIRECTED [facility] Omeprazole (Omeprazole) 20 mg PO DAILY [facility] Last Admin: 08/15/19 08:36 Dose: 20 mg Vancomycin HCl (Pharmacy To Dose - Vancomycin) 1 dose .XX ASDIRECTED [facility] - Exam General: Alert, Oriented Neck: Supple Lungs: Clear to Auscultation, Normal Respiratory Effort Cardiovascular: Regular Rate, Regular Rhythm GI/Abdominal Exam: Normal Bowel Sounds, Soft, Non-Tender Extremities: Non-Tender, No Pedal Edema Skin: Warm, Dry, Intact Neurological: No New Focal Deficit Sepsis Event Note - Evaluation Sepsis Screening Result: No Definite Risk - Focused Exam Vital Signs: Vital Signs Temp Pulse Resp BP BP Pulse Ox 08/16/19 12:14 36.1 C 100 18 126/76 91 L 08/16/19 07:30 36.4 C 63 20 137/86 94 L 08/16/19 04:00 36.4 C 74 20 132/82 92 L Date Exam was Performed: 08/16/19 Time Exam was Performed: 14:14 - Problem List Review Problem List Initiated/Reviewed/Updated: Yes - My Orders Last 24 Hours: My Active Orders 08/16/19 11:03 Blood Culture x2 Reflex Set [OM.PC] Stat 08/16/19 11:21 CULTURE BLOOD [BC] Stat 08/16/19 11:38 CULTURE BLOOD [BC] Stat 08/17/19 05:11 BASIC METABOLIC PANEL,BMP [CHEM] AM CBC WITH AUTO DIFF [HEME] AM - Plan Plan:: 64 yo male admitted with suspected osteomyelitis. Osteomyelitis L1-L2 with gram negative bacteremia- Continue Vanco and Cefepime. Cultures growing klebsiella. I suspect patient's port is infected. Will repeat blood cultures to check for clearance. Submental mass- Nothing seen on PET around the neck, US shows irregular mass.
[2019-08-16] MEDS: oxyCODONE 5 MG Tab PO PRN (20:02)
[2019-08-17] MEDS: HYDROmorphone 2 MG/ML Syringe IVPUSH PRN ×5 (00:51→14:59)
[2019-08-17] MEDS: Sodium Chloride 0.9% 1,000 ML IV SCH ×2 (00:55→11:40)
[2019-08-17] MEDS: oxyCODONE 5 MG Tab PO PRN ×4 (01:29→15:00)
[2019-08-17] MEDS: Cefepime 2 GM in Premix Bag 1 BAG IV SCH ×2 (05:11→16:26)
[2019-08-17] MEDS: Heparin Sodium 5,000 Units/ML Vial SUBCUT SCH (05:16)
[2019-08-17 06:37] LABS: POTASSIUM,K 3.7 mmol/L (3.5-5.1)
[2019-08-17] MEDS: Omeprazole 20 MG Cap.CR PO SCH (06:42)
--- NOTE | 2019-08-17 08:18 | PCM.PN ---
- General Info Date of Service: 08/17/19 Subjective Update: Patient reports he is doing fine, has no complaints. Has been afebrile. - Review of Systems General: Reports: No Symptoms HEENT: Reports: No Symptoms Pulmonary: Reports: No Symptoms Cardiovascular: Reports: No Symptoms Gastrointestinal: Reports: No Symptoms Genitourinary: Reports: No Symptoms Musculoskeletal: Reports: No Symptoms Skin: Reports: No Symptoms Neurological: Reports: No Symptoms Psychiatric: Reports: No Symptoms - Patient Data Vitals - Most Recent: Last Vital Signs Temp 97.2 F 08/17/19 07:10 Pulse 60 08/17/19 07:10 Resp 18 08/17/19 07:10 BP 157/82 H 08/17/19 07:10 Pulse Ox 95 08/17/19 07:10 Weight - Most Recent: 60.1 kg I&O - Last 24 Hours: Intake & Output 08/16/19 08/17/19 08/17/19 22:59 06:59 14:59 Intake Total 1760 1600 Output Total 1380 2100 Balance 380 -500 Lab Results Last 24 Hours: Laboratory Results - last 24 hr 08/17/19 08/17/19 Range/Units 05:50 05:50 WBC 2.82 L (4.0-11.0) K/uL RBC 3.08 L (4.50-5.90) M/uL Hgb 9.2 L (13.0-17.0) g/dL Hct 26.9 L (38.0-50.0) % MCV 87.3 (80.0-98.0) fL MCH 29.9 (27.0-32.0) pg MCHC 34.2 (31.0-37.0) g/dL RDW Std Deviation 50.4 (28.0-62.0) fl RDW Coeff of Dee 16 H (11.0-15.0) % Plt Count 221 (150-400) K/uL MPV 9.50 (7.40-12.00) fL Neut % (Auto) 69.5 (48.0-80.0) % Lymph % (Auto) 15.6 L (16.0-40.0) % [place] % (Auto) 10.6 (0.0-15.0) % Eos % (Auto) 3.9 (0.0-7.0) % Baso % (Auto) 0.4 (0.0-1.5) % Neut # (Auto) 2.0 (1.4-5.7) K/uL Lymph # (Auto) 0.4 L (0.6-2.4) K/uL [place] # (Auto) 0.3 (0.0-0.8) K/uL Eos # (Auto) 0.1 (0.0-0.7) K/uL Baso # (Auto) 0.0 (0.0-0.1) K/uL Nucleated RBC % 0.0 /100WBC Nucleated RBCs # 0 K/uL Sodium 138 (136-148) mmol/L Potassium 3.7 (3.5-5.1) mmol/L Chloride 103 (98-107) mmol/L Carbon Dioxide 24.0 (21.0-32.0) mmol/L BUN 14 (7.0-18.0) mg/dL Creatinine 1.6 H (0.8-1.3) mg/dL Est Cr Clr Drug Dosing 40.17 mL/min Estimated GFR (MDRD) 43.9 ml/min Glucose 88 (74-106) mg/dL Calcium 8.9 (8.5-10.1) mg/dL Oren Results Last 24 Hours: Microbiology 08/14/19 11:15 Aerobic Blood Culture - Preliminary Blood - Venous Pseudomonas Aeruginosa Anaerobic Blood Culture - Preliminary 08/16/19 06:30 Aerobic Blood Culture - Preliminary Blood NO GROWTH AFTER 1 DAY Anaerobic Blood Culture - Preliminary NO GROWTH AFTER 1 DAY 08/16/19 11:21 Aerobic Blood Culture - Preliminary Blood - Venous 08/14/19 11:25 Aerobic Blood Culture - Preliminary Blood - Venous - Lab Draw NO GROWTH AFTER 2 DAYS Anaerobic Blood Culture - Preliminary NO GROWTH AFTER 2 DAYS 08/13/19 16:08 Aerobic Blood Culture - Final Blood - Venous Anaerobic Blood Culture - Final 08/13/19 15:44 Aerobic Blood Culture - Final Blood - Venous - Lab Draw Klebsiella Pneumoniae Anaerobic Blood Culture - Final Med Orders - Current: Current Medications Acetaminophen (Tylenol) 650 mg PO Q4H PRN PRN Reason: Pain/Fever Albuterol (Ventolin Hfa) 0 gm INH Q4H PRN PRN Reason: Shortness of Breath Albuterol/Ipratropium (Duoneb 3.0-0.5 Mg/3 Ml) 3 ml NEB Q6HRRT PRN PRN Reason: Wheezing Fentanyl (Duragesic) 100 mcg TRDERM Q72H [facility] Last Admin: 08/14/19 09:36 Dose: 100 mcg Heparin Sodium (Porcine) (Heparin Sodium) 5,000 units SUBCUT Q8H [facility] Last Admin: 08/17/19 05:16 Dose: 5,000 units Hydromorphone HCl (Dilaudid) 2 mg IVPUSH Q3H PRN PRN Reason: Pain (severe 7-10) Last Admin: 08/17/19 05:03 Dose: 2 mg Cefepime HCl 2 gm/ Premix 50 mls @ 100 mls/hr IV Q12H [facility] Last Admin: 08/17/19 05:11 Dose: 100 mls/hr Sodium Chloride (Normal Saline) 1,000 mls @ 100 mls/hr IV ASDIRECTED [facility] Last Admin: 08/17/19 00:55 Dose: 100 mls/hr Vancomycin HCl 1 gm/ Sodium (Chloride) 250 mls @ 166 mls/hr IV Q24H [facility] Last Admin: 08/16/19 17:07 Dose: 166 mls/hr Nicotine (Habitrol) 7 mg TRDERM DAILY [facility] Last Admin: 08/16/19 08:34 Dose: 7 mg Omeprazole (Omeprazole) 20 mg PO ACBREAKFAST [facility] Last Admin: 08/17/19 06:42 Dose: 20 mg Ondansetron HCl (Zofran) 4 mg IVPUSH Q4H PRN PRN Reason: Nausea/Vomiting Oxycodone HCl (Oxycodone) 5 mg PO Q4H PRN PRN Reason: Pain (moderate 4-6) Last Admin: 08/17/19 06:43 Dose: 5 mg Discontinued Medications Acetaminophen (Tylenol) 650 mg PO NOW ONE Stop: 08/13/19 15:37 Last Admin: 08/13/19 15:55 Dose: 650 mg Albuterol/Ipratropium (Duoneb 3.0-0.5 Mg/3 Ml) 3 ml NEB ONETIME ONE Stop: 08/15/19 08:49 Last Admin: 08/15/19 09:14 Dose: 3 ml Enoxaparin Sodium (Lovenox) 40 mg SUBCUT BEDTIME [facility] Last Admin: 01/15/20 20:13 Dose: 40 mg Fentanyl (Duragesic) 100 mcg TRDERM Q72H [facility] Heparin Sodium (Porcine) (Heparin Lock Flush 100 Units/Ml) 500 units FLUSH ONETIME ONE Stop: 08/15/19 05:34 Last Admin: 08/15/19 05:44 Dose: 500 units Hydromorphone HCl (Dilaudid) 1 mg IVPUSH Q3H PRN PRN Reason: Pain (severe 7-10) Last Admin: 08/14/19 06:06 Dose: 1 mg Hydromorphone HCl (Dilaudid) 2 mg IVPUSH Q3H PRN PRN Reason: Pain (severe 7-10) Sodium Chloride (Normal Saline) 1,000 mls @ 999 mls/hr IV .BOLUS ONE Stop: 08/13/19 16:36 Last Admin: 08/13/19 15:55 Dose: 999 mls/hr Cefepime HCl 1 gm/ Premix 50 mls @ 100 mls/hr IV ONETIME ONE Stop: 08/13/19 16:47 Last Admin: 08/13/19 16:31 Dose: 100 mls/hr Vancomycin HCl 1 gm/ Sodium (Chloride) 250 mls @ 166 mls/hr IV ONETIME ONE Stop: 08/13/19 17:47 Last Infusion: 08/13/19 18:10 Dose: 75 mls/hr Sodium Chloride (Normal Saline) 1,000 mls @ 999 mls/hr IV STAT ONE Stop: 08/13/19 19:52 Last Admin: 08/13/19 19:54 Dose: Not Given Nicotine (Habitrol) 14 mg TRDERM DAILY ONE Stop: 08/13/19 18:56 Last Admin: 08/13/19 19:19 Dose: Not Given Non-Formulary Medication (Fentanyl [Fentanyl]) 1 each TD ASDIRECTED [facility] Omeprazole (Omeprazole) 20 mg PO DAILY [facility] Last Admin: 08/15/19 08:36 Dose: 20 mg Vancomycin HCl (Pharmacy To Dose - Vancomycin) 1 dose .XX ASDIRECTED [facility] - Exam General: Alert, Oriented, Cooperative Lungs: Clear to Auscultation, Normal Respiratory Effort Cardiovascular: Regular Rate, Regular Rhythm GI/Abdominal Exam: Normal Bowel Sounds, Soft, Non-Tender, No Distention Extremities: No Pedal Edema Skin: Warm, Dry, Intact Neurological: No New Focal Deficit Psy/Mental Status: Alert, Normal Affect, Normal Mood Sepsis Event Note - Evaluation Sepsis Screening Result: No Definite Risk - Focused Exam Vital Signs: Vital Signs Temp Pulse Resp BP Pulse Ox 08/17/19 07:10 97.2 F 60 18 157/82 H 95 08/17/19 04:44 97.5 F 57 L 18 146/86 H 95 08/16/19 23:54 97.8 F 60 18 128/86 93 L Date Exam was Performed: 08/17/19 Time Exam was Performed: 10:55 - Problem List Review Problem List Initiated/Reviewed/Updated: Yes - My Orders Last 24 Hours: My Active Orders 08/16/19 07:30 Omeprazole 20 mg PO ACBREAKFAST - Plan Plan:: 64 yo male admitted with suspected osteomyelitis. 1. Osteomyelitis L1-L2 with gram negative bacteremia- Continue Vanco and Cefepime. Cultures growing klebsiella. Seems port is infected, repeat blood cultures from port continue to be positive but cultures from periphery negative. Pain under control. Discussed the case with oncology at [facility]. They stated yes he needs the port out but they don't think he needs a biopsy of the region. They said without a known mass they wouldn't biopsy. Spoke with Dr. Bauer, general surgeon, he will remove the port tomorrow. Will stop heparin and make NPO at midnight. 2. Submental mass- Nothing seen on PET around the neck, US shows irregular mass. Will need outpatient biopsy. 3. CKD- at baseline, continue to monitor
[2019-08-17] MEDS: Nicotine 7 MG/24 Hr Patch TRDERM SCH (08:37)
[2019-08-17] MEDS: fentaNYL 100 MCG/HR Transdermal Patch TRDERM SCH (08:41)
--- NOTE | 2019-08-17 11:24 | PCM.SN ---
- Free Text/Narrative Note: pt seen, chart reviewed; consult dictated; Infected port, plan removal in tomorrow; pls hold all anticoag; npo; would recommend PICC line for usp abx in light of infectious conditions; see [id number]
--- NOTE | 2019-08-17 12:11 | PCM.DCSUM1 ---
Discharge Summary - Hospital Course HPI Initial Comments: Admission Date: 08/13/19 Discharge Date: 08/17/19 Admission Diagnosis: 1. Osteomyelitis L1-L2 2. Chronic anemia 3. CKD Discharge Diagnosis: 1. Osteomyelitis L1-L2 2. Chronic anemia- stable 3. CKD- stable 4. Submental mass Procedures: None Consults: None Hospital Course: The patient is a64 year old male who presented to the ER after outpatient MRI showed osteomyelitis of L1- L2 and he was having severe back pain and fevers. Has a history of head/neck cancer, last chemo/radiation was Aug 2018. Last PET was Jul 2019 which showed uptake at L1-L2, had similar uptake on Apr 2019 PET. In the ER, WBC was 4.6, chronic anemia and CKD were at baseline, elevated ESR of 67. UA was negative. Started on Vancomycin and Cefepime. Was admitted to medical floor and continued on IV Vancomycin and Cefepime. Initial blood cultures were positive in the port and periphery for Klebsiella. Repeat blood cultures were positive for Pseudomonas in port only, periphery was clear. Third set showed gram negative rods in port but nothing in periphery. Discussed the case with oncology in [place], who recommended port removal but did not think he needed a biopsy of the area in his back. Spoke to Dr. CHACON, general surgery who was planning on taking the port out on 08/18. When the second blood culture came back positive with a different organism, ID was consulted over the phone. They recommended transfer to a facility that has neurosurgery, infectious disease, and the ability to perform a DOV. Case was discussed with Dr. Jackson, ER, at [facility] who was agreeable to the transfer. Throughout the stay his anemia and kidney disease were monitored and stable. Patient also reported mass under chin. US showed 2.5 cm irregular mass, radiology recommended biopsy, no uptake on the PET in that region a week ago. Disposition: Transfer to [facility] in [place] Discharge Condition: vitals stable, tolerating oral diet, ambulating - Discharge Data Discharge Date: 08/17/19 Discharge Disposition: DC/Tfer to Acute Hospital 02 Condition: Poor - Referral to Home Health Primary Care Physician: Zeinab Diallo MD - Patient Summary/Data Consults: Consultations 08/17/19 10:54 Consult to Physician [CONS] Routine - Discharge Plan *PRESCRIPTION DRUG MONITORING PROGRAM REVIEWED*: No *COPY OF PRESCRIPTION DRUG MONITORING REPORT IN PATIENT CARMEN: No Home Medications: Home Meds Omeprazole Magnesium [Prilosec Otc] 40 mg PO ACBREAKFAST 01/17/16 [History] Albuterol [Ventolin HFA] 2 inh INH Q4H PRN 02/19/18 [History] HYDROmorphone [Dilaudid] 2 mg PO Q4H PRN 07/22/18 [History] fentaNYL [Fentanyl] 100 mcg TD Q72H 07/22/18 [History] Amoxicillin 500 mg PO TID #30 capsule 07/29/19 [Rx] Hydrocodone/Acetaminophen [[place] 5-325 Tablet] 1 - 2 each PO Q6H PRN #12 tablet 07/29/19 [Rx] HYDROmorphone [Dilaudid] 2 mg PO Q4H PRN #20 tab 08/05/19 [Rx] Patient Handouts: Bone and Joint Infections, Adult, Cellulitis, Adult, Easy-to- Read, Chronic Kidney Disease, Adult, [id number] Referrals: Zeinab Diallo MD [Primary Care Provider] - 08/19/19 10:00 am (Arrive 15 minutes early, with photo ID and insurance card.) - Discharge Summary/Plan Comment DC Time >30 min.: Yes - Patient Data Vitals - Most Recent: Last Vital Signs Temp 97.5 F 08/17/19 11:31 Pulse 109 H 08/17/19 11:31 Resp 18 08/17/19 11:31 BP 143/81 H 08/17/19 11:31 Pulse Ox 92 L 08/17/19 11:31 Weight - Most Recent: 60.1 kg I&O - Last 24 hours: Intake & Output 08/16/19 08/17/19 08/17/19 22:59 06:59 14:59 Intake Total 1760 1600 Output Total 1380 2100 Balance 380 -500 Lab Results - Last 24 hrs: Laboratory Results - last 24 hr 08/17/19 08/17/19 Range/Units 05:50 05:50 WBC 2.82 L (4.0-11.0) K/uL RBC 3.08 L (4.50-5.90) M/uL Hgb 9.2 L (13.0-17.0) g/dL Hct 26.9 L (38.0-50.0) % MCV 87.3 (80.0-98.0) fL MCH 29.9 (27.0-32.0) pg MCHC 34.2 (31.0-37.0) g/dL RDW Std Deviation 50.4 (28.0-62.0) fl RDW Coeff of Dee 16 H (11.0-15.0) % Plt Count 221 (150-400) K/uL MPV 9.50 (7.40-12.00) fL Neut % (Auto) 69.5 (48.0-80.0) % Lymph % (Auto) 15.6 L (16.0-40.0) % [place] % (Auto) 10.6 (0.0-15.0) % Eos % (Auto) 3.9 (0.0-7.0) % Baso % (Auto) 0.4 (0.0-1.5) % Neut # (Auto) 2.0 (1.4-5.7) K/uL Lymph # (Auto) 0.4 L (0.6-2.4) K/uL [place] # (Auto) 0.3 (0.0-0.8) K/uL Eos # (Auto) 0.1 (0.0-0.7) K/uL Baso # (Auto) 0.0 (0.0-0.1) K/uL Nucleated RBC % 0.0 /100WBC Nucleated RBCs # 0 K/uL Sodium 138 (136-148) mmol/L Potassium 3.7 (3.5-5.1) mmol/L Chloride 103 (98-107) mmol/L Carbon Dioxide 24.0 (21.0-32.0) mmol/L BUN 14 (7.0-18.0) mg/dL Creatinine 1.6 H (0.8-1.3) mg/dL Est Cr Clr Drug Dosing 40.17 mL/min Estimated GFR (MDRD) 43.9 ml/min Glucose 88 (74-106) mg/dL Calcium 8.9 (8.5-10.1) mg/dL NOMAN Results - Last 24 hrs: Microbiology 08/16/19 11:38 Aerobic Blood Culture - Preliminary Blood - Venous - Lab Draw NO GROWTH AFTER 1 DAY Anaerobic Blood Culture - Preliminary NO GROWTH AFTER 1 DAY 08/16/19 11:21 Aerobic Blood Culture - Preliminary Blood - Venous Anaerobic Blood Culture - Preliminary NO GROWTH AFTER 1 DAY 08/14/19 11:25 Aerobic Blood Culture - Preliminary Blood - Venous - Lab Draw NO GROWTH AFTER 3 DAYS Anaerobic Blood Culture - Preliminary NO GROWTH AFTER 3 DAYS 08/14/19 11:15 Aerobic Blood Culture - Preliminary Blood - Venous Pseudomonas Aeruginosa Anaerobic Blood Culture - Preliminary 08/16/19 06:30 Aerobic Blood Culture - Preliminary Blood NO GROWTH AFTER 1 DAY Anaerobic Blood Culture - Preliminary NO GROWTH AFTER 1 DAY 08/13/19 16:08 Aerobic Blood Culture - Final Blood - Venous Anaerobic Blood Culture - Final 08/13/19 15:44 Aerobic Blood Culture - Final Blood - Venous - Lab Draw Klebsiella Pneumoniae Anaerobic Blood Culture - Final Med Orders - Current: Current Medications Acetaminophen (Tylenol) 650 mg PO Q4H PRN PRN Reason: Pain/Fever Albuterol (Ventolin Hfa) 0 gm INH Q4H PRN PRN Reason: Shortness of Breath Albuterol/Ipratropium (Duoneb 3.0-0.5 Mg/3 Ml) 3 ml NEB Q6HRRT PRN PRN Reason: Wheezing Fentanyl (Duragesic) 100 mcg TRDERM Q72H [facility] Last Admin: 08/17/19 08:41 Dose: 100 mcg Hydromorphone HCl (Dilaudid) 2 mg IVPUSH Q3H PRN PRN Reason: Pain (severe 7-10) Last Admin: 08/17/19 11:36 Dose: 2 mg Cefepime HCl 2 gm/ Premix 50 mls @ 100 mls/hr IV Q12H [facility] Last Admin: 08/17/19 05:11 Dose: 100 mls/hr Sodium Chloride (Normal Saline) 1,000 mls @ 100 mls/hr IV ASDIRECTED [facility] Last Admin: 08/17/19 11:40 Dose: 100 mls/hr Vancomycin HCl 1 gm/ Sodium (Chloride) 250 mls @ 166 mls/hr IV Q24H [facility] Last Admin: 08/16/19 17:07 Dose: 166 mls/hr Lactated Ringer's (Ringers, Lactated) 1,000 mls @ 125 mls/hr IV ASDIRECTED [facility] Nicotine (Habitrol) 7 mg TRDERM DAILY [facility] Last Admin: 08/17/19 08:37 Dose: 7 mg Omeprazole (Omeprazole) 20 mg PO ACBREAKFAST [facility] Last Admin: 08/17/19 06:42 Dose: 20 mg Ondansetron HCl (Zofran) 4 mg IVPUSH Q4H PRN PRN Reason: Nausea/Vomiting Oxycodone HCl (Oxycodone) 5 mg PO Q4H PRN PRN Reason: Pain (moderate 4-6) Last Admin: 08/17/19 10:57 Dose: 5 mg Discontinued Medications Acetaminophen (Tylenol) 650 mg PO NOW ONE Stop: 08/13/19 15:37 Last Admin: 08/13/19 15:55 Dose: 650 mg Albuterol/Ipratropium (Duoneb 3.0-0.5 Mg/3 Ml) 3 ml NEB ONETIME ONE Stop: 08/15/19 08:49 Last Admin: 08/15/19 09:14 Dose: 3 ml Enoxaparin Sodium (Lovenox) 40 mg SUBCUT BEDTIME [facility] Last Admin: 08/13/19 20:13 Dose: 40 mg Fentanyl (Duragesic) 100 mcg TRDERM Q72H [facility] Heparin Sodium (Porcine) (Heparin Sodium) 5,000 units SUBCUT Q8H [facility] Last Admin: 08/17/19 05:16 Dose: 5,000 units Heparin Sodium (Porcine) (Heparin Lock Flush 100 Units/Ml) 500 units FLUSH ONETIME ONE Stop: 08/15/19 05:34 Last Admin: 08/15/19 05:44 Dose: 500 units Hydromorphone HCl (Dilaudid) 1 mg IVPUSH Q3H PRN PRN Reason: Pain (severe 7-10) Last Admin: 08/14/19 06:06 Dose: 1 mg Hydromorphone HCl (Dilaudid) 2 mg IVPUSH Q3H PRN PRN Reason: Pain (severe 7-10) Sodium Chloride (Normal Saline) 1,000 mls @ 999 mls/hr IV .BOLUS ONE Stop: 08/13/19 16:36 Last Admin: 08/13/19 15:55 Dose: 999 mls/hr Cefepime HCl 1 gm/ Premix 50 mls @ 100 mls/hr IV ONETIME ONE Stop: 08/13/19 16:47 Last Admin: 08/13/19 16:31 Dose: 100 mls/hr Vancomycin HCl 1 gm/ Sodium (Chloride) 250 mls @ 166 mls/hr IV ONETIME ONE Stop: 08/13/19 17:47 Last Infusion: 08/13/19 18:10 Dose: 75 mls/hr Sodium Chloride (Normal Saline) 1,000 mls @ 999 mls/hr IV STAT ONE Stop: 08/13/19 19:52 Last Admin: 08/13/19 19:54 Dose: Not Given Nicotine (Habitrol) 14 mg TRDERM DAILY ONE Stop: 08/13/19 18:56 Last Admin: 08/13/19 19:19 Dose: Not Given Non-Formulary Medication (Fentanyl [Fentanyl]) 1 each TD ASDIRECTED [facility]ZET Omeprazole (Omeprazole) 20 mg PO DAILY [facility] Last Admin: 08/15/19 08:36 Dose: 20 mg Vancomycin HCl (Pharmacy To Dose - Vancomycin) 1 dose .XX ASDIRECTED [facility]ET
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
[2019-08-17 16:53] VITALS: BP 141/79; PULSE 69
[2019-08-18] MEDS ORDERED: Lactated Ringers 1,000 ML IV SCH (05:00)
== END 2019-08-17 16:20 | DRG 540 ==
LOC: MW.ED 15:21 → MW.MS 17:18
PROVIDERS: ADMIT Internal Medicine; ATTEND Internal Medicine
DX: M46.26 Osteomyelitis of vertebra, lumbar region (principal); R64 Cachexia; R78.81 Bacteremia; J44.9 Chronic obstructive pulmonary disease, unspecified; K21.9 Gastro-esophageal reflux disease without esophagitis; R22.9 Localized swelling, mass and lump, unspecified; M19.90 Unspecified osteoarthritis, unspecified site; M54.9 Dorsalgia, unspecified; G89.29 Other chronic pain; F41.9 Anxiety disorder, unspecified; F32.9 Major depressive disorder, single episode, unspecified; F17.210 Nicotine dependence, cigarettes, uncomplicated; N18.9 Chronic kidney disease, unspecified; R09.02 Hypoxemia; Z79.51 Long term (current) use of inhaled steroids; Z79.2 Long term (current) use of antibiotics; Z90.89 Acquired absence of other organs; Z98.890 Other specified postprocedural states; Z79.899 Other long term (current) drug therapy
CPT/HCPCS: 36415; 71045; 71045-26; 76536-26; 76536-50; 80048; 80053; 81003; 83605; 85025; 85652; 87040; 87077; 87186; 94640; 96361; 96365; 99285-25; A9270-GY; G0480; J0692; J1170; J1642; J1644; J1650; J3370; J7030; J7050; J7620-GY

== ENCOUNTER 2019-08-25 15:29 | Observation (INO) | payer MEDICAID ==
[2019-08-25] MEDS ORDERED: Sodium Chloride 0.9% 10 ML Syringe FLUSH PRN (15:49)
[2019-08-25] MEDS ORDERED: Sodium Chloride 0.9% 10 ML SDV IV PRN (15:49)
[2019-08-25] MEDS ORDERED: Sodium Chloride 0.9% 2.5 ML Syringe FLUSH PRN (15:49)
--- NOTE | 2019-08-25 16:03 | CT ---
INDICATION: 64-year-old male. Altered mental status. TECHNIQUE: CT images were acquired from foramen magnum to vertex without contrast. FINDINGS: Lateral, 3rd and 4th ventricles are normal in size and shape. No evidence of acute intracranial hemorrhage. No subdural fluid collections no mass effect. Preservation of hill-white interface. No hyperdense cerebral artery sign no evidence of acute infarction. No posterior fossa hemorrhage or mass effect. The bony calvarium is unremarkable. The included paranasal sinuses are clear. IMPRESSION: Negative CT scan of the brain. No evidence of acute intracranial abnormality at this time. Please note that all CT scans at this facility use dose modulation, iterative reconstruction, and/or weight-based dosing when appropriate to reduce radiation dose to as low as reasonably achievable. Dictated by Avni Caba MD @ Aug 25 2019 3:59PM Signed by Dr. Avni Caba @ Aug 25 2019 4:02PM
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
[2019-08-25 16:20] LABS: BLOOD UREA NITROGEN,BUN 17 mg/dL (7.0-18.0); CARBON DIOXIDE,CO2 26.4 mmol/L (21.0-32.0); CHLORIDE,CL 98 mmol/L (98-107); GLUCOSE RANDOM 123 mg/dL (74-106); POTASSIUM,K 4.3 mmol/L (3.5-5.1); SODIUM,NA 133 mmol/L (136-148)
--- NOTE | 2019-08-25 16:26 | CR ---
Chest: Portable view of the chest was obtained. Comparison: Previous chest x-ray of 08/13/19. Heart size is normal. Tortuous thoracic aorta is noted. Left-sided PICC line is seen. Increased lung markings are noted which appear to be chronic. No acute parenchymal change is seen. Old healed right clavicle fracture is noted. Bony structures are osteopenic. Impression: 1. Left-sided PICC line. 2. Increased lung markings which appear chronic. 3. Nothing acute is appreciated. Diagnostic code #2 This report was dictated in [place] Standard Time
[2019-08-25] MEDS ORDERED: Sodium Chloride 0.9% 1,000 ML IV SCH (17:15)
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
[2019-08-25] MEDS ORDERED: Cefepime 2 GM in Premix Bag 1 BAG IV ONE (18:01)
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
[2019-08-25] MEDS ORDERED: Ondansetron 4 MG/2 ML SDV IVPUSH PRN (18:42)
[2019-08-25] MEDS ORDERED: Acetaminophen 325 MG Tab PO PRN (18:42)
[2019-08-25] MEDS ORDERED: Levofloxacin/Dextrose 5%-Water 750 MG in Premix Bag 1 BAG IV SCH (18:45)
[2019-08-25] MEDS ORDERED: Albuterol/Ipratropium 3.0-0.5 MG/3 ML Neb Soln NEB PRN (18:50)
[2019-08-25] MEDS ORDERED: FENTANYL 100 MCG TD SCH (19:00)
[2019-08-25] MEDS: Sodium Chloride 0.9% 1,000 ML IV SCH (20:00)
[2019-08-25] MEDS ORDERED: atorvaSTATin 40 MG Tab PO SCH (21:00)
[2019-08-25] MEDS: Aspirin 325 MG Tab PO SCH (21:43)
[2019-08-25] MEDS: Heparin Sodium 5,000 Units/ML Vial SUBCUT SCH (21:44)
[2019-08-25] MEDS: Cefepime 2 GM in Premix Bag 1 BAG IV SCH (21:45)
[2019-08-25] MEDS ORDERED: OLANZapine 10 MG in Water For Injection, Sterile 2.1 ML IM ONE (22:43)
[2019-08-25] MEDS ORDERED: OLANZapine 10 MG Vial IM ONE (23:00)
[2019-08-25] MEDS ORDERED: OLANZapine 10 MG Vial IM PRN (23:33)
[2019-08-26] MEDS ORDERED: Haloperidol Lactate 5 MG/ML SDV IM ONE ×2 (01:52→11:05)
[2019-08-26] MEDS ORDERED: diphenhydrAMINE 50 MG/ML SDV IVPUSH ONE ×3 (01:56→13:30)
[2019-08-26] MEDS: Cefepime 2 GM in Premix Bag 1 BAG IV SCH (02:29)
[2019-08-26] MEDS: Sodium Chloride 0.9% 1,000 ML IV SCH (05:56)
[2019-08-26] MEDS ORDERED: Non-Formulary Medication 1 Each (Omeprazole Magnesium [Prilosec Otc] 40 MG) PO SCH (07:30)
[2019-08-26] MEDS ORDERED: Omeprazole 20 MG Cap.CR PO SCH (07:34)
--- NOTE | 2019-08-26 08:35 | PCM.PN ---
- General Info Date of Service: 08/26/19 Subjective Update: The patient was admitted yesterday for AMS. Last night his condition worsened, he became aggressive- trying to hit and kick staff, refused vitals, and was cursing at staff. Yesterday, he was confused but pleasant and recognized his significant other. I spoke with her this morning and she said he didn't even recognize her anymore, and was cursing at her which he has never done before. He did receive Benadryl, Haldol, and olanzapine last night. When speaking to him this morning the answer to every question is "fuck off". He would not let me examine him. - Review of Systems Systems Review Comment:: Unable to obtain secondary to mental status - Patient Data Vitals - Most Recent: Last Vital Signs Temp 98.2 F 08/26/19 04:46 Pulse 97 08/26/19 04:46 Resp 18 08/26/19 04:46 BP 168/106 H 08/25/19 23:45 Pulse Ox 97 08/26/19 04:46 Weight - Most Recent: 68.067 kg I&O - Last 24 Hours: Intake & Output 08/25/19 08/26/19 08/26/19 22:59 06:59 14:59 Intake Total 900 Output Total 700 Balance 200 Lab Results Last 24 Hours: Laboratory Results - last 24 hr 08/25/19 08/25/19 08/25/19 Range/Units 15:38 15:40 15:40 WBC 4.14 (4.0-11.0) K/uL RBC 3.91 L (4.50-5.90) M/uL Hgb 11.5 L (13.0-17.0) g/dL Hct 34.2 L (38.0-50.0) % MCV 87.5 (80.0-98.0) fL MCH 29.4 (27.0-32.0) pg MCHC 33.6 (31.0-37.0) g/dL RDW Std Deviation 54.3 (28.0-62.0) fl RDW Coeff of Dee 17 H (11.0-15.0) % Plt Count 252 (150-400) K/uL MPV 8.70 (7.40-12.00) fL Neut % (Auto) 59.9 (48.0-80.0) % Lymph % (Auto) 23.2 (16.0-40.0) % [place] % (Auto) 12.8 (0.0-15.0) % Eos % (Auto) 3.4 (0.0-7.0) % Baso % (Auto) 0.7 (0.0-1.5) % Neut # (Auto) 2.5 (1.4-5.7) K/uL Lymph # (Auto) 1.0 (0.6-2.4) K/uL [place] # (Auto) 0.5 (0.0-0.8) K/uL Eos # (Auto) 0.1 (0.0-0.7) K/uL Baso # (Auto) 0.0 (0.0-0.1) K/uL Nucleated RBC % 0.0 /100WBC Nucleated RBCs # 0 K/uL INR 1.00 APTT 29.9 (18.6-31.3) SEC Sodium (136-148) mmol/L Potassium (3.5-5.1) mmol/L Chloride (98-107) mmol/L Carbon Dioxide (21.0-32.0) mmol/L BUN (7.0-18.0) mg/dL Creatinine (0.8-1.3) mg/dL Est Cr Clr Drug Dosing mL/min Estimated GFR (MDRD) ml/min Glucose (74-106) mg/dL POC Glucose 117 H (60-110) mg/dL Calcium (8.5-10.1) mg/dL Total Bilirubin (0.2-1.0) mg/dL AST (15-37) IU/L ALT (14-63) IU/L Alkaline Phosphatase (46-116) U/L Troponin I (0.000-0.056) ng/mL Total Protein (6.4-8.2) g/dL Albumin (3.4-5.0) g/dL Globulin (2.6-4.0) g/dL Albumin/Globulin Ratio (0.9-1.6) Free T4 (0.76-1.46) ng/dL TSH 3rd Generation (0.36-3.74) uIU/mL Urine Color Urine Appearance Urine pH (5.0-8.0) Ur Specific [place] (1.001-1.035) Urine Protein (NEGATIVE) mg/dL Urine Glucose (UA) (NEGATIVE) mg/dL Urine Ketones (NEGATIVE) mg/dL Urine Occult Blood (NEGATIVE) Urine Nitrite (NEGATIVE) Urine Bilirubin (NEGATIVE) Urine Urobilinogen (<2.0) EU/dL Ur Leukocyte Esterase (NEGATIVE) Urine RBC (0-2/HPF) Urine WBC (0-5/HPF) Ur Epithelial Cells (NONE-FEW) Urine Bacteria (NEGATIVE) Urine Opiates Screen (NEGATIVE) Ur Oxycodone Screen (NEGATIVE) Urine Methadone Screen (NEGATIVE) Ur Barbiturates Screen (NEGATIVE) Ur Phencyclidine Scrn (NEGATIVE) Ur Amphetamine Screen (NEGATIVE) U Methamphetamines Scrn (NEGATIVE) U Benzodiazepines Scrn (NEGATIVE) U Cocaine Metab Screen (NEGATIVE) U Marijuana (THC) Screen (NEGATIVE) 08/25/19 08/25/19 08/25/19 Range/Units 15:40 15:40 16:40 WBC (4.0-11.0) K/uL RBC (4.50-5.90) M/uL Hgb (13.0-17.0) g/dL Hct (38.0-50.0) % MCV (80.0-98.0) fL MCH (27.0-32.0) pg MCHC (31.0-37.0) g/dL RDW Std Deviation (28.0-62.0) fl RDW Coeff of Dee (11.0-15.0) % Plt Count (150-400) K/uL MPV (7.40-12.00) fL Neut % (Auto) (48.0-80.0) % Lymph % (Auto) (16.0-40.0) % [place] % (Auto) (0.0-15.0) % Eos % (Auto) (0.0-7.0) % Baso % (Auto) (0.0-1.5) % Neut # (Auto) (1.4-5.7) K/uL Lymph # (Auto) (0.6-2.4) K/uL [place] # (Auto) (0.0-0.8) K/uL Eos # (Auto) (0.0-0.7) K/uL Baso # (Auto) (0.0-0.1) K/uL Nucleated RBC % /100WBC Nucleated RBCs # K/uL INR APTT (18.6-31.3) SEC Sodium 133 L (136-148) mmol/L Potassium 4.3 (3.5-5.1) mmol/L Chloride 98 (98-107) mmol/L Carbon Dioxide 26.4 (21.0-32.0) mmol/L BUN 17 (7.0-18.0) mg/dL Creatinine 1.7 H (0.8-1.3) mg/dL Est Cr Clr Drug Dosing 40.14 mL/min Estimated GFR (MDRD) 40.9 ml/min Glucose 123 H (74-106) mg/dL POC Glucose (60-110) mg/dL Calcium 10.3 H (8.5-10.1) mg/dL Total Bilirubin 0.6 (0.2-1.0) mg/dL AST 36 (15-37) IU/L ALT 22 (14-63) IU/L Alkaline Phosphatase 123 H (46-116) U/L Troponin I < 0.050 (0.000-0.056) ng/mL Total Protein 8.7 H (6.4-8.2) g/dL Albumin 3.2 L (3.4-5.0) g/dL Globulin 5.5 H (2.6-4.0) g/dL Albumin/Globulin Ratio 0.6 L (0.9-1.6) Free T4 0.84 (0.76-1.46) ng/dL TSH 3rd Generation 14.24 H (0.36-3.74) uIU/mL Urine Color YELLOW Urine Appearance HAZY Urine pH 7.5 (5.0-8.0) Ur Specific [place] 1.015 (1.001-1.035) Urine Protein NEGATIVE (NEGATIVE) mg/dL Urine Glucose (UA) NEGATIVE (NEGATIVE) mg/dL Urine Ketones NEGATIVE (NEGATIVE) mg/dL Urine Occult Blood SMALL H (NEGATIVE) Urine Nitrite NEGATIVE (NEGATIVE) Urine Bilirubin NEGATIVE (NEGATIVE) Urine Urobilinogen 0.2 (<2.0) EU/dL Ur Leukocyte Esterase NEGATIVE (NEGATIVE) Urine RBC 0-4 (0-2/HPF) Urine WBC 0-3 (0-5/HPF) Ur Epithelial Cells RARE (NONE-FEW) Urine Bacteria RARE (NEGATIVE) Urine Opiates Screen (NEGATIVE) Ur Oxycodone Screen (NEGATIVE) Urine Methadone Screen (NEGATIVE) Ur Barbiturates Screen (NEGATIVE) Ur Phencyclidine Scrn (NEGATIVE) Ur Amphetamine Screen (NEGATIVE) U Methamphetamines Scrn (NEGATIVE) U Benzodiazepines Scrn (NEGATIVE) U Cocaine Metab Screen (NEGATIVE) U Marijuana (THC) Screen (NEGATIVE) 08/25/19 Range/Units 16:40 WBC (4.0-11.0) K/uL RBC (4.50-5.90) M/uL Hgb (13.0-17.0) g/dL Hct (38.0-50.0) % MCV (80.0-98.0) fL MCH (27.0-32.0) pg MCHC (31.0-37.0) g/dL RDW Std Deviation (28.0-62.0) fl RDW Coeff of Dee (11.0-15.0) % Plt Count (150-400) K/uL MPV (7.40-12.00) fL Neut % (Auto) (48.0-80.0) % Lymph % (Auto) (16.0-40.0) % [place] % (Auto) (0.0-15.0) % Eos % (Auto) (0.0-7.0) % Baso % (Auto) (0.0-1.5) % Neut # (Auto) (1.4-5.7) K/uL Lymph # (Auto) (0.6-2.4) K/uL [place] # (Auto) (0.0-0.8) K/uL Eos # (Auto) (0.0-0.7) K/uL Baso # (Auto) (0.0-0.1) K/uL Nucleated RBC % /100WBC Nucleated RBCs # K/uL INR APTT (18.6-31.3) SEC Sodium (136-148) mmol/L Potassium (3.5-5.1) mmol/L Chloride (98-107) mmol/L Carbon Dioxide (21.0-32.0) mmol/L BUN (7.0-18.0) mg/dL Creatinine (0.8-1.3) mg/dL Est Cr Clr Drug Dosing mL/min Estimated GFR (MDRD) ml/min Glucose (74-106) mg/dL POC Glucose (60-110) mg/dL Calcium (8.5-10.1) mg/dL Total Bilirubin (0.2-1.0) mg/dL AST (15-37) IU/L ALT (14-63) IU/L Alkaline Phosphatase (46-116) U/L Troponin I (0.000-0.056) ng/mL Total Protein (6.4-8.2) g/dL Albumin (3.4-5.0) g/dL Globulin (2.6-4.0) g/dL Albumin/Globulin Ratio (0.9-1.6) Free T4 (0.76-1.46) ng/dL TSH 3rd Generation (0.36-3.74) uIU/mL Urine Color Urine Appearance Urine pH (5.0-8.0) Ur Specific [place] (1.001-1.035) Urine Protein (NEGATIVE) mg/dL Urine Glucose (UA) (NEGATIVE) mg/dL Urine Ketones (NEGATIVE) mg/dL Urine Occult Blood (NEGATIVE) Urine Nitrite (NEGATIVE) Urine Bilirubin (NEGATIVE) Urine Urobilinogen (<2.0) EU/dL Ur Leukocyte Esterase (NEGATIVE) Urine RBC (0-2/HPF) Urine WBC (0-5/HPF) Ur Epithelial Cells (NONE-FEW) Urine Bacteria (NEGATIVE) Urine Opiates Screen NEGATIVE (NEGATIVE) Ur Oxycodone Screen NEGATIVE (NEGATIVE) Urine Methadone Screen NEGATIVE (NEGATIVE) Ur Barbiturates Screen NEGATIVE (NEGATIVE) Ur Phencyclidine Scrn NEGATIVE (NEGATIVE) Ur Amphetamine Screen NEGATIVE (NEGATIVE) U Methamphetamines Scrn NEGATIVE (NEGATIVE) U Benzodiazepines Scrn NEGATIVE (NEGATIVE) U Cocaine Metab Screen NEGATIVE (NEGATIVE) U Marijuana (THC) Screen NEGATIVE (NEGATIVE) Med Orders - Current: Current Medications Acetaminophen (Tylenol) 650 mg PO Q4H PRN PRN Reason: Pain/Fever Albuterol/Ipratropium (Duoneb 3.0-0.5 Mg/3 Ml) 3 ml NEB Q4HRRT PRN PRN Reason: Wheezing Aspirin (Aspirin) 325 mg PO DAILY [facility] Last Admin: 08/25/19 21:43 Dose: 325 mg Atorvastatin Calcium (Lipitor) 40 mg PO BEDTIME [facility] Last Admin: 08/25/19 21:30 Dose: 40 mg Heparin Sodium (Porcine) (Heparin Sodium) 5,000 units SUBCUT Q12H [facility] Last Admin: 08/25/19 21:44 Dose: 5,000 units Sodium Chloride (Normal Saline) 1,000 mls @ 125 mls/hr IV STAT [facility] Last Admin: 08/25/19 17:21 Dose: 125 mls/hr Sodium Chloride (Normal Saline) 1,000 mls @ 125 mls/hr IV ASDIRECTED [facility] Last Admin: 08/26/19 05:56 Dose: 125 mls/hr Levofloxacin/Dextrose 750 mg/ (Premix) 150 mls @ 100 mls/hr IV Q48H [facility] Cefepime HCl 2 gm/ Premix 50 mls @ 100 mls/hr IV Q12H [facility] Olanzapine (Zyprexa) 5 mg IM Q6H PRN PRN Reason: Agitation Stop: 08/26/19 11:00 Omeprazole (Omeprazole) 40 mg PO ACBREAKFAST [facility] Ondansetron HCl (Zofran) 4 mg IVPUSH Q4H PRN PRN Reason: Nausea/Vomiting Sodium Chloride (Saline Flush) 10 ml FLUSH ASDIRECTED PRN PRN Reason: Keep Vein Open Last Admin: 08/25/19 17:22 Dose: 10 ml Sodium Chloride (Saline Flush) 2.5 ml FLUSH ASDIRECTED PRN PRN Reason: Keep Vein Open Last Admin: 08/25/19 17:22 Dose: 2.5 ml Sodium Chloride (Normal Saline) 10 ml IV ASDIRECTED PRN PRN Reason: IV Use Last Admin: 08/25/19 17:22 Dose: 10 ml Discontinued Medications Diphenhydramine HCl (Benadryl) 25 mg IVPUSH ONETIME ONE Stop: 08/26/19 01:57 Last Admin: 08/26/19 02:12 Dose: 25 mg Haloperidol Lactate (Haldol) 5 mg IM ONETIME ONE Stop: 08/26/19 01:53 Last Admin: 08/26/19 02:17 Dose: 5 mg Cefepime HCl 2 gm/ Premix 50 mls @ 100 mls/hr IV ONETIME ONE Stop: 08/25/19 18:30 Last Admin: 08/25/19 18:44 Dose: 100 mls/hr Cefepime HCl 2 gm/ Premix 50 mls @ 100 mls/hr IV Q8H [facility] Last Admin: 08/26/19 02:29 Dose: 100 mls/hr Levofloxacin/Dextrose 750 mg/ (Premix) 150 mls @ 100 mls/hr IV Q24H [facility] Last Admin: 08/25/19 21:29 Dose: 100 mls/hr Olanzapine 10 mg/ Sterile (Water) 2.1 mls @ 999 mls/hr IM ONETIME ONE Stop: 08/25/19 22:44 Last Admin: 08/26/19 04:10 Dose: Not Given Non-Formulary Medication (Fentanyl [Fentanyl]) 100 mcg TD Q72H [facility] Non-Formulary Medication (Omeprazole Magnesium [Prilosec Otc]) 40 mg PO ACBREAKFAST [facility] Olanzapine (Zyprexa) 10 mg IM NOW ONE Stop: 08/25/19 23:01 Last Admin: 08/25/19 23:25 Dose: 10 mg - Exam Physical Findings Comments:: patient refused examination Sepsis Event Note - Evaluation Sepsis Screening Result: No Definite Risk - Focused Exam Vital Signs: Vital Signs Temp Pulse Resp BP Pulse Ox 08/26/19 04:46 98.2 F 97 18 97 08/25/19 23:45 98.6 F 92 19 168/106 H 92 L Date Exam was Performed: 08/26/19 Time Exam was Performed: 08:30 - Problem List Review Problem List Initiated/Reviewed/Updated: Yes - My Orders Last 24 Hours: My Active Orders 08/25/19 18:42 Intake and Output [RC] ASDIRECTED Neuro Check [RC] Q3HR Ang Head wo Cont [MR] Stat Ang Neck wo Cont [MR] Stat Brain w wo Cont [MR] Stat Lumbar Spine w Cont [CT] Stat Acetaminophen [Tylenol] 650 mg PO Q4H PRN Ondansetron [Zofran] 4 mg IVPUSH Q4H PRN Resuscitation Status Routine 08/25/19 18:45 Aspirin 325 mg PO DAILY 08/25/19 18:46 Consult to Speech Language Pathology [GAS TESTER Evaluation and Treatment] [CONS] Routine Echo Comp wo Cont [US] Stat 08/25/19 18:50 RT Aerosol Therapy [RC] ASDIRECTED Albuterol/Ipratropium [DuoNeb 3.0-0.5 MG/3 ML] 3 ml NEB Q4HRRT PRN 08/25/19 19:00 Heparin Sodium 5,000 units SUBCUT Q12H Sodium Chloride 0.9% [Normal Saline] 1,000 ml IV ASDIRECTED 08/25/19 21:00 atorvaSTATin [Lipitor] 40 mg PO BEDTIME 08/26/19 05:11 BASIC METABOLIC PANEL,BMP [CHEM] AM CBC WITH AUTO DIFF [HEME] AM 08/26/19 07:03 LIPID PANEL [CHEM] Routine 08/26/19 07:34 Omeprazole 40 mg PO ACBREAKFAST 08/26/19 10:00 Cefepime [Maxipime in D5W 2 GM/50 ML] 2 gm Premix Bag 1 bag IV Q12H 08/26/19 Breakfast Regular Diet [DIET] 08/27/19 18:00 Levofloxacin/Dextrose 5%-Water [Levaquin in D5W 750 MG/150 ML] 750 mg Premix Bag 1 bag IV Q48H - Plan Plan:: 1. AMS secondary to stroke vs thyroid disease vs infection- For stroke workup, neuro checks q3, MRI brain, MRA head/neck, echo. Ordered ASA and statin yesterday. Consult Speech therapy. No need for PT/OT at this time as patient has no weakness and can ambulate without difficulty. For thyroid, TSH elevated but T4 wnl, subclinical hypothyroidism likely related to illness. For possible infection, blood cultures pending, continue home antibiotics for osteo. PRn meds ordered for aggression. 8. Osteomyelitis of L1-L2- continue Cefepime and Levaquin, will get CT lumbar spine 9. CKD- was at baseline yesterday but patient refused labs this morning.
[2019-08-26 09:23] VITALS: BP 158/84
[2019-08-26] MEDS ORDERED: Cefepime 2 GM in Premix Bag 1 BAG IV SCH (10:00)
[2019-08-26] MEDS ORDERED: Alteplase 2 MG Vial IVPUSH ONE (10:33)
--- NOTE | 2019-08-26 11:01 | PCM.DCSUM1 ---
Discharge Summary - Hospital Course HPI Initial Comments: Admission Date: 08/25/19 Discharge Date: 08/26/19 Admission Diagnosis: 1. AMS- stroke vs thyroid disease vs osteomyelitis 2. Osteomyeltis of L1-L2 3. CKD Discharge Diagnosis: 1. AMS- stroke vs thyroid disease vs osteomyelitis- worsening 2. Osteomyelitis of L1-L2 3. CKD Procedures: None Consults: None Hospital Course: The patient is a 64 year old male with past medical history of head/neck cancer (last chemo Aug 2018), osteomyelitis of L1-L2, COPD, chronic pain. Presents today with confusion since last night. Significant other states he doesn't recognize things, answers aren't making any sense, and is having word finding difficulties. Denies fever/chills, headache, chest pain, shortness of breath, abdominal pain, nausea/vomiting/diarrhea, burning with urination, slurred speech, extremity weakness. Was recently admitted 08/13/19- for osteomyelitis, bacteremia secondary to port infection and was transferred to [place]. In [place] they removed his port and biopsied the osteomyelitis to confirm it was infection and not cancer. Was discharged and sent home on Cefepime via PICC and oral Levaquin. Patient denies any drug use. Has been on same narcotic dosage. In the ER, work up showed no white count, chronic anemia at baseline, CKD at baseline, glucose wnl, Trop negative, UDS negative, UA negative, elevated TSH of 14. Head CT was negative and CXR showed no acute cardiopulmonary process. Was given 1 L of IVF. Patient was admitted to the medical floor, we had planned for further work up with imaging of brain, echo, and lumbar spine as well as additional labs but the patient become acutely worse over night. He became more confused, no longer recognized his significant other, dislodged his PICC line, and became combative requiring Haldol, Zyprexa, Ativan, and Benadryl. The next morning he only responded to questions with "fuck you", he would not allow us to examine him, draw labs, or get imaging. We did not have a clear cause of his AMS, and the only way to get imaging would be do place him under conscious sedation which is not available at this facility. We also believed he would need a neurologist and eventually would need his PICC line replaced. Due to this, the case was discussed with Dr. Mills, ER, at [facility] who accepted the patient. Disposition: Transfer to [facility] in [place] Discharge Condition: vitals stable, altered mental status - Discharge Data Discharge Date: 08/26/19 Discharge Disposition: DC/Tfer to Acute Hospital 02 Condition: Fair - Referral to Home Health Primary Care Physician: PCP Not In Area - Patient Summary/Data Consults: Consultations 08/25/19 18:46 Consult to Speech Language Pathology [LABOURERS Evaluation and Treatment] [CONS] Routine - Discharge Plan Home Medications: Home Meds Omeprazole Magnesium [Prilosec Otc] 40 mg PO ACBREAKFAST 01/17/16 [History] Albuterol [Ventolin HFA] 2 inh INH Q4H PRN 02/19/18 [History] HYDROmorphone [Dilaudid] 2 mg PO Q4H PRN 07/22/18 [History] fentaNYL [Fentanyl] 100 mcg TD Q72H 07/22/18 [History] Amoxicillin 500 mg PO TID #30 capsule 07/29/19 [Rx] Hydrocodone/Acetaminophen [[place] 5-325 Tablet] 1 - 2 each PO Q6H PRN #12 tablet 07/29/19 [Rx] HYDROmorphone [Dilaudid] 2 mg PO Q4H PRN #20 tab 08/05/19 [Rx] Forms: ED Department Discharge Referrals: PCP,Not In Area [Primary Care Provider] - - Discharge Summary/Plan Comment DC Time >30 min.: No - Patient Data Vitals - Most Recent: Last Vital Signs Temp 98.1 F 08/26/19 08:00 Pulse 92 08/26/19 08:00 Resp 18 08/26/19 08:00 BP 158/84 H 08/26/19 08:00 Pulse Ox 94 L 08/26/19 08:00 Weight - Most Recent: 68.067 kg I&O - Last 24 hours: Intake & Output 08/25/19 08/26/19 08/26/19 22:59 06:59 14:59 Intake Total 900 Output Total 700 Balance 200 Lab Results - Last 24 hrs: Laboratory Results - last 24 hr 08/25/19 08/25/19 08/25/19 Range/Units 15:38 15:40 15:40 WBC 4.14 (4.0-11.0) K/uL RBC 3.91 L (4.50-5.90) M/uL Hgb 11.5 L (13.0-17.0) g/dL Hct 34.2 L (38.0-50.0) % MCV 87.5 (80.0-98.0) fL MCH 29.4 (27.0-32.0) pg MCHC 33.6 (31.0-37.0) g/dL RDW Std Deviation 54.3 (28.0-62.0) fl RDW Coeff of Dee 17 H (11.0-15.0) % Plt Count 252 (150-400) K/uL MPV 8.70 (7.40-12.00) fL Neut % (Auto) 59.9 (48.0-80.0) % Lymph % (Auto) 23.2 (16.0-40.0) % Harvey % (Auto) 12.8 (0.0-15.0) % Eos % (Auto) 3.4 (0.0-7.0) % Baso % (Auto) 0.7 (0.0-1.5) % Neut # (Auto) 2.5 (1.4-5.7) K/uL Lymph # (Auto) 1.0 (0.6-2.4) K/uL Harvey # (Auto) 0.5 (0.0-0.8) K/uL Eos # (Auto) 0.1 (0.0-0.7) K/uL Baso # (Auto) 0.0 (0.0-0.1) K/uL Nucleated RBC % 0.0 /100WBC Nucleated RBCs # 0 K/uL INR 1.00 APTT 29.9 (18.6-31.3) SEC Sodium (136-148) mmol/L Potassium (3.5-5.1) mmol/L Chloride (98-107) mmol/L Carbon Dioxide (21.0-32.0) mmol/L BUN (7.0-18.0) mg/dL Creatinine (0.8-1.3) mg/dL Est Cr Clr Drug Dosing mL/min Estimated GFR (MDRD) ml/min Glucose (74-106) mg/dL POC Glucose 117 H (60-110) mg/dL Calcium (8.5-10.1) mg/dL Total Bilirubin (0.2-1.0) mg/dL AST (15-37) IU/L ALT (14-63) IU/L Alkaline Phosphatase (46-116) U/L Troponin I (0.000-0.056) ng/mL Total Protein (6.4-8.2) g/dL Albumin (3.4-5.0) g/dL Globulin (2.6-4.0) g/dL Albumin/Globulin Ratio (0.9-1.6) Free T4 (0.76-1.46) ng/dL TSH 3rd Generation (0.36-3.74) uIU/mL Urine Color Urine Appearance Urine pH (5.0-8.0) Ur Specific Ethel (1.001-1.035) Urine Protein (NEGATIVE) mg/dL Urine Glucose (UA) (NEGATIVE) mg/dL Urine Ketones (NEGATIVE) mg/dL Urine Occult Blood (NEGATIVE) Urine Nitrite (NEGATIVE) Urine Bilirubin (NEGATIVE) Urine Urobilinogen (<2.0) EU/dL Ur Leukocyte Esterase (NEGATIVE) Urine RBC (0-2/HPF) Urine WBC (0-5/HPF) Ur Epithelial Cells (NONE-FEW) Urine Bacteria (NEGATIVE) Urine Opiates Screen (NEGATIVE) Ur Oxycodone Screen (NEGATIVE) Urine Methadone Screen (NEGATIVE) Ur Barbiturates Screen (NEGATIVE) Ur Phencyclidine Scrn (NEGATIVE) Ur Amphetamine Screen (NEGATIVE) U Methamphetamines Scrn (NEGATIVE) U Benzodiazepines Scrn (NEGATIVE) U Cocaine Metab Screen (NEGATIVE) U Marijuana (THC) Screen (NEGATIVE) 08/25/19 08/25/19 08/25/19 Range/Units 15:40 15:40 16:40 WBC (4.0-11.0) K/uL RBC (4.50-5.90) M/uL Hgb (13.0-17.0) g/dL Hct (38.0-50.0) % MCV (80.0-98.0) fL MCH (27.0-32.0) pg MCHC (31.0-37.0) g/dL RDW Std Deviation (28.0-62.0) fl RDW Coeff of Dee (11.0-15.0) % Plt Count (150-400) K/uL MPV (7.40-12.00) fL Neut % (Auto) (48.0-80.0) % Lymph % (Auto) (16.0-40.0) % Harvey % (Auto) (0.0-15.0) % Eos % (Auto) (0.0-7.0) % Baso % (Auto) (0.0-1.5) % Neut # (Auto) (1.4-5.7) K/uL Lymph # (Auto) (0.6-2.4) K/uL Harvey # (Auto) (0.0-0.8) K/uL Eos # (Auto) (0.0-0.7) K/uL Baso # (Auto) (0.0-0.1) K/uL Nucleated RBC % /100WBC Nucleated RBCs # K/uL INR APTT (18.6-31.3) SEC Sodium 133 L (136-148) mmol/L Potassium 4.3 (3.5-5.1) mmol/L Chloride 98 (98-107) mmol/L Carbon Dioxide 26.4 (21.0-32.0) mmol/L BUN 17 (7.0-18.0) mg/dL Creatinine 1.7 H (0.8-1.3) mg/dL Est Cr Clr Drug Dosing 40.14 mL/min Estimated GFR (MDRD) 40.9 ml/min Glucose 123 H (74-106) mg/dL POC Glucose (60-110) mg/dL Calcium 10.3 H (8.5-10.1) mg/dL Total Bilirubin 0.6 (0.2-1.0) mg/dL AST 36 (15-37) IU/L ALT 22 (14-63) IU/L Alkaline Phosphatase 123 H (46-116) U/L Troponin I < 0.050 (0.000-0.056) ng/mL Total Protein 8.7 H (6.4-8.2) g/dL Albumin 3.2 L (3.4-5.0) g/dL Globulin 5.5 H (2.6-4.0) g/dL Albumin/Globulin Ratio 0.6 L (0.9-1.6) Free T4 0.84 (0.76-1.46) ng/dL TSH 3rd Generation 14.24 H (0.36-3.74) uIU/mL Urine Color YELLOW Urine Appearance HAZY Urine pH 7.5 (5.0-8.0) Ur Specific Ethel 1.015 (1.001-1.035) Urine Protein NEGATIVE (NEGATIVE) mg/dL Urine Glucose (UA) NEGATIVE (NEGATIVE) mg/dL Urine Ketones NEGATIVE (NEGATIVE) mg/dL Urine Occult Blood SMALL H (NEGATIVE) Urine Nitrite NEGATIVE (NEGATIVE) Urine Bilirubin NEGATIVE (NEGATIVE) Urine Urobilinogen 0.2 (<2.0) EU/dL Ur Leukocyte Esterase NEGATIVE (NEGATIVE) Urine RBC 0-4 (0-2/HPF) Urine WBC 0-3 (0-5/HPF) Ur Epithelial Cells RARE (NONE-FEW) Urine Bacteria RARE (NEGATIVE) Urine Opiates Screen (NEGATIVE) Ur Oxycodone Screen (NEGATIVE) Urine Methadone Screen (NEGATIVE) Ur Barbiturates Screen (NEGATIVE) Ur Phencyclidine Scrn (NEGATIVE) Ur Amphetamine Screen (NEGATIVE) U Methamphetamines Scrn (NEGATIVE) U Benzodiazepines Scrn (NEGATIVE) U Cocaine Metab Screen (NEGATIVE) U Marijuana (THC) Screen (NEGATIVE) 08/25/19 Range/Units 16:40 WBC (4.0-11.0) K/uL RBC (4.50-5.90) M/uL Hgb (13.0-17.0) g/dL Hct (38.0-50.0) % MCV (80.0-98.0) fL MCH (27.0-32.0) pg MCHC (31.0-37.0) g/dL RDW Std Deviation (28.0-62.0) fl RDW Coeff of Dee (11.0-15.0) % Plt Count (150-400) K/uL MPV (7.40-12.00) fL Neut % (Auto) (48.0-80.0) % Lymph % (Auto) (16.0-40.0) % Harvey % (Auto) (0.0-15.0) % Eos % (Auto) (0.0-7.0) % Baso % (Auto) (0.0-1.5) % Neut # (Auto) (1.4-5.7) K/uL Lymph # (Auto) (0.6-2.4) K/uL Harvey # (Auto) (0.0-0.8) K/uL Eos # (Auto) (0.0-0.7) K/uL Baso # (Auto) (0.0-0.1) K/uL Nucleated RBC % /100WBC Nucleated RBCs # K/uL INR APTT (18.6-31.3) SEC Sodium (136-148) mmol/L Potassium (3.5-5.1) mmol/L Chloride (98-107) mmol/L Carbon Dioxide (21.0-32.0) mmol/L BUN (7.0-18.0) mg/dL Creatinine (0.8-1.3) mg/dL Est Cr Clr Drug Dosing mL/min Estimated GFR (MDRD) ml/min Glucose (74-106) mg/dL POC Glucose (60-110) mg/dL Calcium (8.5-10.1) mg/dL Total Bilirubin (0.2-1.0) mg/dL AST (15-37) IU/L ALT (14-63) IU/L Alkaline Phosphatase (46-116) U/L Troponin I (0.000-0.056) ng/mL Total Protein (6.4-8.2) g/dL Albumin (3.4-5.0) g/dL Globulin (2.6-4.0) g/dL Albumin/Globulin Ratio (0.9-1.6) Free T4 (0.76-1.46) ng/dL TSH 3rd Generation (0.36-3.74) uIU/mL Urine Color Urine Appearance Urine pH (5.0-8.0) Ur Specific Ethel (1.001-1.035) Urine Protein (NEGATIVE) mg/dL Urine Glucose (UA) (NEGATIVE) mg/dL Urine Ketones (NEGATIVE) mg/dL Urine Occult Blood (NEGATIVE) Urine Nitrite (NEGATIVE) Urine Bilirubin (NEGATIVE) Urine Urobilinogen (<2.0) EU/dL Ur Leukocyte Esterase (NEGATIVE) Urine RBC (0-2/HPF) Urine WBC (0-5/HPF) Ur Epithelial Cells (NONE-FEW) Urine Bacteria (NEGATIVE) Urine Opiates Screen NEGATIVE (NEGATIVE) Ur Oxycodone Screen NEGATIVE (NEGATIVE) Urine Methadone Screen NEGATIVE (NEGATIVE) Ur Barbiturates Screen NEGATIVE (NEGATIVE) Ur Phencyclidine Scrn NEGATIVE (NEGATIVE) Ur Amphetamine Screen NEGATIVE (NEGATIVE) U Methamphetamines Scrn NEGATIVE (NEGATIVE) U Benzodiazepines Scrn NEGATIVE (NEGATIVE) U Cocaine Metab Screen NEGATIVE (NEGATIVE) U Marijuana (THC) Screen NEGATIVE (NEGATIVE) Med Orders - Current: Current Medications Acetaminophen (Tylenol) 650 mg PO Q4H PRN PRN Reason: Pain/Fever Albuterol/Ipratropium (Duoneb 3.0-0.5 Mg/3 Ml) 3 ml NEB Q4HRRT PRN PRN Reason: Wheezing Aspirin (Aspirin) 325 mg PO DAILY [facility] Last Admin: 08/25/19 21:43 Dose: 325 mg Atorvastatin Calcium (Lipitor) 40 mg PO BEDTIME [facility] Last Admin: 08/25/19 21:30 Dose: 40 mg Heparin Sodium (Porcine) (Heparin Sodium) 5,000 units SUBCUT Q12H [facility] Last Admin: 08/25/19 21:44 Dose: 5,000 units Sodium Chloride (Normal Saline) 1,000 mls @ 125 mls/hr IV STAT [facility] Last Admin: 08/25/19 17:21 Dose: 125 mls/hr Sodium Chloride (Normal Saline) 1,000 mls @ 125 mls/hr IV ASDIRECTED [facility] Last Admin: 08/26/19 05:56 Dose: 125 mls/hr Cefepime HCl 2 gm/ Premix 50 mls @ 100 mls/hr IV Q12H [facility] Last Admin: 08/26/19 09:52 Dose: 100 mls/hr Omeprazole (Omeprazole) 40 mg PO ACBREAKFAST [facility] Ondansetron HCl (Zofran) 4 mg IVPUSH Q4H PRN PRN Reason: Nausea/Vomiting Sodium Chloride (Saline Flush) 10 ml FLUSH ASDIRECTED PRN PRN Reason: Keep Vein Open Last Admin: 08/25/19 17:22 Dose: 10 ml Sodium Chloride (Saline Flush) 2.5 ml FLUSH ASDIRECTED PRN PRN Reason: Keep Vein Open Last Admin: 08/25/19 17:22 Dose: 2.5 ml Sodium Chloride (Normal Saline) 10 ml IV ASDIRECTED PRN PRN Reason: IV Use Last Admin: 08/25/19 17:22 Dose: 10 ml Discontinued Medications Alteplase, Recombinant (Cathflo Activase) 2 mg IVPUSH ONETIME ONE Stop: 08/26/19 10:34 Diphenhydramine HCl (Benadryl) 25 mg IVPUSH ONETIME ONE Stop: 08/26/19 01:57 Last Admin: 08/26/19 02:12 Dose: 25 mg Haloperidol Lactate (Haldol) 5 mg IM ONETIME ONE Stop: 08/26/19 01:53 Last Admin: 08/26/19 02:17 Dose: 5 mg Cefepime HCl 2 gm/ Premix 50 mls @ 100 mls/hr IV ONETIME ONE Stop: 08/25/19 18:30 Last Admin: 08/25/19 18:44 Dose: 100 mls/hr Cefepime HCl 2 gm/ Premix 50 mls @ 100 mls/hr IV Q8H [facility] Last Admin: 08/26/19 02:29 Dose: 100 mls/hr Levofloxacin/Dextrose 750 mg/ (Premix) 150 mls @ 100 mls/hr IV Q24H [facility] Last Admin: 08/25/19 21:29 Dose: 100 mls/hr Olanzapine 10 mg/ Sterile (Water) 2.1 mls @ 999 mls/hr IM ONETIME ONE Stop: 08/25/19 22:44 Last Admin: 08/26/19 04:10 Dose: Not Given Levofloxacin/Dextrose 750 mg/ (Premix) 150 mls @ 100 mls/hr IV Q48H [facility] Non-Formulary Medication (Fentanyl [Fentanyl]) 100 mcg TD Q72H [facility] Non-Formulary Medication (Omeprazole Magnesium [Prilosec Otc]) 40 mg PO ACBREAKFAST [facility] Olanzapine (Zyprexa) 10 mg IM NOW ONE Stop: 08/25/19 23:01 Last Admin: 08/25/19 23:25 Dose: 10 mg Olanzapine (Zyprexa) 5 mg IM Q6H PRN PRN Reason: Agitation Stop: 08/26/19 11:00
[2019-08-26] MEDS ORDERED: Haloperidol Lactate 5 MG/ML SDV IM PRN (11:06)
[2019-08-26] MEDS: Heparin Sodium 5,000 Units/ML Vial SUBCUT SCH (11:58)
[2019-08-26] MEDS: Aspirin 325 MG Tab PO SCH (12:00)
[2019-08-26 12:06] VITALS: PULSE 98
[2019-08-26] MEDS ORDERED: LORazepam 2 MG/ML SDV IVPUSH ONE (13:20)
[2019-08-27] MEDS ORDERED: Levofloxacin/Dextrose 5%-Water 750 MG in Premix Bag 1 BAG IV SCH (18:00)
== END 2019-08-26 13:30 ==
LOC: MW.ED 15:29 → MW.MS 18:19
PROVIDERS: ADMIT Student in an Organized Health Care Education/Training Program; ATTEND Student in an Organized Health Care Education/Training Program
DX: R41.82 Altered mental status, unspecified (principal); M46.26 Osteomyelitis of vertebra, lumbar region; N18.9 Chronic kidney disease, unspecified; D64.9 Anemia, unspecified; J44.9 Chronic obstructive pulmonary disease, unspecified; K21.9 Gastro-esophageal reflux disease without esophagitis; G89.29 Other chronic pain; M54.9 Dorsalgia, unspecified; F41.9 Anxiety disorder, unspecified; F32.9 Major depressive disorder, single episode, unspecified; F17.210 Nicotine dependence, cigarettes, uncomplicated; Z79.51 Long term (current) use of inhaled steroids; Z79.899 Other long term (current) drug therapy
CPT/HCPCS: 36415; 70450; 71045; 80053; 80305; 81001; 82962; 84439; 84443; 84484; 85025; 85610; 85730; 87040; 93005; A9270; J0692; J1200; J1630; J1644; J1956; J2060; J7030; J7050; S0166; 99284; J3490